=== PATIENT | female | born 1955 | race Caucasian/White ===

== ENCOUNTER 2017-12-17 13:53 | Inpatient (IN) | payer OTHER ==
[~2017-12-17] VITALS: Ht 157.5 cm; Wt 61.8 kg
[~2017-12-17 13:53] MED LIST: AMITRIPTYLINE H10 M1 PO; ATIVAN0.5 MG PO; ATIVAN1 MG PO; ATORVASTATIN CA80 MG PO; DUONEB 3 MG/3 ML3 ML INH/SOL; EXCEDRIN TENSIO1 TAB PO; FLUOXETINE HYDR20 M1 PO; GABAPENTIN300 MG PO; HYDRALAZINE HCL25 MG PO; HYDRALAZINE10 MG PO; LABETALOL HCL100 M1 PO; LABETALOL HYDR200 MG PO; NEURONTIN800 M1 PO; NICODERM C14 MG/24 H TD; NICOTINE T7 MG/24 H1 TD; NORVASC 10MG10 MG PO; NORVASC10 M1 PO; OXYCODONE HCL10 M2 PO; OXYCODONE HCL15 MG PO; OXYCONTIN20 MG PO; OXYCONTIN30 M1 PO; PREDNISONE10 MG PO; PRINIVIL 5MG5 MG PO; PRINIVIL10 MG PO; PROAIR HFA8.5 GM INH; QVAR0.08 MG/Ac INH; TRANDATE-NORMO200 MG PO; ZITHROMAX500 MG PO
[2017-12-17 14:42] LABS: ABSOLUTE BASOPHIL COUNT 0.1 /CUMM (0.0-0.2); ABSOLUTE EOSINOPHIL COUNT 0 /CUMM (0.0-0.7); ABSOLUTE MONOCYTE COUNT 0.7 /CUMM (0.10-0.60); BASOPHIL % 0.3 % (0.0-2.0); EOSINOPHIL % 0 % (0-5); GRANULOCYTE % 89.7 % (42.2-75.2); HEMATOCRIT 44.4 % (37-47); MEAN CORPUSCULAR HGB 29.4 PG (27.0-31.0); MEAN CORPUSCULAR HGB CONC 33.2 G/DL (33.0-37.0); MEAN CORPUSCULAR VOLUME 88.6 FL (81.0-99.0); MEAN PLATELET VOLUME 8.4 FL (7.4-10.4); PLATELET COUNT 183 /CUMM (130-400); RBC DISTRIBUTION WIDTH 13.3 % (11.5-14.5); RED BLOOD CELL CT 5.01 /CUMM (4.20-5.40); WHITE BLOOD CELL COUNT 17.8 /CUMM (4.8-10.8)
[2017-12-17] MEDS ORDERED: ALBUTEROL0.63 MG/1 INH/SOL (15:44)
[2017-12-17] MEDS ORDERED: DULOXETINE HCL30 MG PO (15:45)
[2017-12-17] MEDS ORDERED: ALPRAZOLAM0.25 M1 PO (15:45)
[2017-12-17] MEDS ORDERED: HYDRALAZINE HCL25 M1 PO (15:46)
[2017-12-17] MEDS ORDERED: TRAZODONE HCL50 M1 PO (15:47)
[2017-12-17] MEDS ORDERED: LYRICA100 M1 PO (15:47)
[2017-12-17] MEDS ORDERED: ANORO ELLIPTA1 EACH INH (15:48)
[2017-12-17] MEDS ORDERED: ATORVASTATIN CA80 M1 PO (15:49)
--- NOTE | 2017-12-17 15:51 | RADIOLOGY REPORT ---
EXAMINATION: XR PORTABLE CHEST CLINICAL INFORMATION: Confusion, hypoxia COMPARISON: 08/29/2015 TECHNIQUE: Portable FINDINGS: patients head obscures the upper lung zones medially. Given this there is no convincing evidence for an acute finding. No obvious failure or infiltrate. No effusion. Once again tortuous versus ectatic descending aorta. view of the chest was obtained. Impression: Negative acute portable chest. Limitation in the upper lung zones
--- NOTE | 2017-12-17 15:54 | ED AMS/SEIZURE/WEAK/DIZZY ---
History of Present Illness General Chief Complaint: General Adult Stated Complaint: CONFUSED PER ; HIGH BP PER PT Source: patient, family, old records Exam Limitations: confusion Vital Signs & Intake/Output Vital Signs & Intake/Output Vital Signs Date Time Temp Pulse Resp B/P B/P Pulse O2 O2 Flow FiO2 Mean Ox Delivery Rate 12/17 1859 97.4 93 20 126/78 92 Nasal 3.5L Cannula 12/17 1626 99.2 102 22 141/90 93 Nasal 3.0L Cannula 12/17 1512 109 22 92 Nasal 4.0L Cannula 12/17 1450 85 Nasal Cannula 12/17 1440 108 22 144/95 90 Nasal 3.0L Cannula 12/17 1401 99.9 128 22 154/102 89 Room Air Allergies Coded Allergies: codeine (ITCHING, HIVES 12/16/15) Reconcile Medications Albuterol Sulfate (Proair Hfa) 90 MCG HFA.AER.AD 2 PUF INH Q4-6 PRN PRN SHORTNESS OF BREATH (Reported) Albuterol Sulfate 0.63 MG/3 ML VIAL.NEB 1 Vial INH/RIA 4 TIMES/DAY PRN SHORTNESS OF BREATH (Reported) Alprazolam 0.25 MG TABLET 1 TAB PO TIDPRN PRN ANXIETY (Reported) Amlodipine Besylate (Norvasc) 10 MG TABLET 1 TAB PO DAILY HEART (Reported) Atorvastatin Calcium 80 MG TABLET 1 TAB PO 1700 CHOLESTEROL (Reported) Duloxetine HCl 30 MG CAPSULE.DR 1 CAP PO DAILY DEPRESSION (Reported) Hydralazine HCl 25 MG TABLET 1 TAB PO BID HEART (Reported) Labetalol HCl 100 MG TABLET 1 TAB PO BID HEART (Reported) Oxycodone HCl 10 MG TABLET 1 TAB PO TIDPRN PRN PAIN (Reported) Oxycodone HCl (Oxycontin) 30 MG TAB.ER.12H 1 TAB PO TID PAIN (Reported) Pregabalin (Lyrica) 100 MG CAPSULE 1 CAP PO TID PAIN (Reported) Trazodone HCl 50 MG TABLET 1.5 TAB PO QPM SLEEP (Reported) Umeclidinium Brm/Vilanterol Tr (Anoro Ellipta 62.5-25 Mcg INH) 62.5 MCG-25 MCG/ ACTUATION BLST.W.DEV 1 PUFF INH DAILY SHORTNESS OF BREATH (Reported) Triage Note: PT TO TRIAGE WITH HER WHO STATES THAT PT HAS INCREASED CONFUSION OVER THE PAST 2 DAYS, PT UNABLE TO KEEP HER EYES OPEN AT TRIAGE, O2 SAT 89 % ON RA, PT NOT ANSWERING QUESTIONS FOR THIS NURSE, PT IS IN PAIN MANAGEMENT BUT STATES THAT HE HAS THE MEDS UNDER LOCK AND COOLEY, STATES THAT PT MINIMAL APPETITE, WONT SIT STILL, HE WAS AT WORK AND HE CALLED HOME AND SHE PICKED UP BUT 10 SECONDS LATER SHE DROPPED PHONE ON FLOOR, HE LEFT WORK AND FOUND PT ON THE TOILET , NOT ANSWERING QUESTIONS. SPOUSE STATES THAT PT IS HOME BY HERSELF DURING THE DAY SO HE DOES NOT KNOW IF SHE FELL , STATES THAT THIS AM BEFORE GOING TO WORK , PT WAS SITTING IN CHAIR WITH PANTS AND UNDERWEAR DOWN TO HER KNEES, STATES THAT SHE HAD URINATED IN THE CHAIR Triage Nurses Notes Reviewed? yes Onset: Gradual Duration: week(s): Timing: recent history Injury Environment: home Severity: moderate HPI: 62YO female with hx of COPD, chronic back pain, HTN presents to ED in care of for AMS. reports the patient has been acting more confused over the past week. states that today the patient's symptoms have been the worst. Patient is on opiate pain medication chronically for her back pain, keeps this medication in a lock box been no recent increase in her medication dosage. states that today prior to leaving for work the patient had urinary incontinence also sitting in chair in the living room with her pants down. called the patient while he was at work and she answered the phone however dropped the phone after a few seconds and did not respond. went home to find her not responding, he was not able to wake her up and brought her here. HPI is limited due to patient's altered mental status, she is arousable however pulse asleep during questioning. Patient is denying chest pain. No fevers, vomiting, fall, dyspnea, cough. states that the patient's baseline oxygen saturation is around 89%, she has never been on home oxygen. (Kristie AUSTIN,Yahaira Worrell) Past History Travel History Traveled to [place] past 21 day No Medical History Any Pertinent Medical History? see below for history Neurological: NONE EENT: NONE Cardiovascular: hypertension Respiratory: COPD Gastrointestinal: NONE Hepatic: NONE Renal: NONE Musculoskeletal: chronic back pain, PULLED DISK Psychiatric: anxiety, chronic pain disorder, PAIN MANAGEMENT Endocrine: NONE Blood Disorders: NONE Cancer(s): NONE MEDICAL LIAISON/Reproductive: NONE Other Medical Hx: (1) HTN (2) Chronic back pain (3) CKD-III History of MRSA: No History of VRE: No History of CDIFF: No Surgical History Surgical History: , multiple back surgeries Psychosocial History Who do you live with Spouse Services at Home None What is your primary language Japanese Tobacco Use: Never used ETOH Use: denies use Illicit Drug Use: denies illicit drug use Family History Family History, If Any: FATHER, , Age 50-60; Cause: Myocardial infarct. MOTHER (breast cancer). . Hx Contributory? No (Yahaira Jaeger) Review of Systems Review of Systems Constitutional: Reports: see HPI. EENTM: Reports: no symptoms. Respiratory: Reports: no symptoms. Cardiovascular: Reports: no symptoms. GI: Reports: no symptoms. Genitourinary: Reports: see HPI. Musculoskeletal: Reports: no symptoms. Skin: Reports: no symptoms. Neurological/Psychological: Reports: see HPI. Hematologic/Endocrine: Reports: no symptoms. Immunologic/Allergic: Reports: no symptoms. All Other Systems: Reviewed and Negative (Yahaira Jaeger) Physical Exam Physical Exam General Appearance: no apparent distress, lethargic Head: atraumatic, normal appearance Eyes: Bilateral: normal appearance, PERRL, EOMI. Ears, Nose, Throat: hearing grossly normal Neck: normal inspection, supple, full range of motion Respiratory: normal breath sounds, no respiratory distress, lungs clear Cardiovascular: normal peripheral pulses, tachycardia Peripheral Pulses: 2+ radial (R), 2+ radial (L) Gastrointestinal: normal bowel sounds, soft, non-tender, no organomegaly Back: normal inspection, normal range of motion Extremities: normal range of motion Neurologic/Psych: awake, oriented to person and place, neurologic exam is limited d/t patient's confusion/lethargy, patient falls asleep during questioning however is arousable Skin: intact, normal color, warm/dry Core Measures ACS in differential dx? Yes CVA/TIA Diagnosis No Sepsis Present: No Sepsis Focused Exam Completed? No (Yahaira Jaeger) Progress Differential Diagnosis: arrythmia, alcohol intoxication, anemia, benign positional vertigo, CVA/stroke, dehydration, drug intoxication, encephalitis, electrolyte imbalance, hypoglycemia, hypoxia, intracranial Hem., intracranial mass/tumor, pneumonia, sepsis, seizure disorder, UTI/pyelo Plan of Care: Orders Procedure Date/time Status Heart Healthy Diet 12/18 B Active CBC WITHOUT DIFFERENTIAL 12/18 06 Active BASIC ELECTROLYTES PLUS BUN&CR 12/18 0600 Active LACTIC ACID 12/17 UNK Complete US-RENAL/KIDNEY 12/17 1842 Active PT Evaluate & Treat 12/17 1741 Active Pathway - chart 12/17 1741 Active House Staff 12/17 1741 Active ED Holding Orders 12/17 1738 Active Admit to inpatient 12/17 1738 Active Vital Signs 12/17 1738 Active Code Status 12/17 1738 Active Pathway - chart 12/17 1732 Active LACTIC ACID 12/17 1717 Complete Patient Data 12/17 1710 Active LUNG SCAN (V/Q) 12/17 1657 Active Add-on Test (ER Only) 12/17 1639 Active Intake & Output 12/17 1511 Active CULTURE,URINE 12/17 1505 Active ARTERIAL BLOOD GAS (GEN) 12/17 1430 Complete BLOOD CULTURE 12/17 1418 Active D-DIMER 12/17 1418 Complete URINE DRUG SCREEN FOR ER ONLY 12/17 1417 Complete URINALYSIS 12/17 1417 Complete ETHANOL 12/17 1417 Complete COMPREHENSIVE METABOLIC PANEL 12/17 1417 Complete CBC WITHOUT DIFFERENTIAL 12/17 1417 Complete EKG 12/17 1417 Active VTE Mechanical Prophylaxis 12/17 UNK Active [place] Coma Scale 12/17 UNK Active Current Medications Sig/Manoj Start time Last Medication Dose Stop Time Status Admin Atorvastatin Calcium 80 MG 1700 12/18 1700 AC (Lipitor) Amlodipine Besylate 10 MG DAILY 12/18 1000 AC (Norvasc) Ceftriaxone Sodium 1,000 MG DAILY 12/18 1000 AC (Rocephin) Duloxetine HCl 30 MG DAILY 12/18 1000 AC (Cymbalta) Heparin Sodium 5,000 UNIT Q8 12/18 0600 UNVr (Porcine) Hydralazine HCl 25 MG BID 12/17 2200 AC (Apresoline) Labetalol HCl 100 MG BID 12/17 2200 AC (Trandate) Pregabalin 100 MG TID 12/17 2200 AC (Lyrica) Acetaminophen 650 MG Q6P PRN 12/17 1745 AC (Tylenol) Sodium Chloride 1,000 ML .Q10H 12/17 1745 AC 12/17 (Normal Saline 0.9%) 1919 Laboratory Tests 12/17/17 1806: Lactic Acid 0.6 L 12/17/17 1600: D-Dimer High Sensitivty 548 H 12/17/17 1505: Urine Opiates Screen 1073.00, Methadone Screen 42, Barbiturate Screen < 60, Ur Phencyclidine Scrn < 6.00, Amphetamines Screen < 100, U Benzodiazepines Scrn > 800 H, Urine Cocaine Screen < 50, Urine Cannabis Screen < 5.00, Urine Color YEL , Urine Clarity HAZY H, Urine pH 6.5, Ur Specific [place] 1.020, Urine Protein >=300 H, Urine Ketones NEG, Urine Nitrite POS H, Urine Bilirubin NEG, Urine Urobilinogen 0.2, Ur Leukocyte Esterase MOD H, Ur Microscopic SEDIMENT EXAMINED , Urine RBC 25-50 H, Urine WBC 50-75 H, Urine Bacteria MANY H, Urine Hemoglobin LARGE H, Urine Glucose NEG 12/17/17 1444: Lactic Acid 1.2 12/17/17 1440: pH 7.39, pCO2 41, pO2 73 L, HCO3 24, ABG O2 Sat (Measured) 91.0 L, P-50 (Temp Corrected) N, Carboxyhemoglobin 2.6, O2 Concentration % 2L, Temperature 99.9, O2 Delivery Method N/C, Phlebotomy Draw Site RIGHT RADIAL 12/17/17 1430: Anion Gap 15, Estimated GFR 30 L, BUN/Creatinine Ratio 15.9, Glucose 127 H, Calcium 9.6, Total Bilirubin 0.9, AST 22, ALT 41, Alkaline Phosphatase 111, Total Protein 6.9, Albumin 4.4, Globulin 2.5, Albumin/Globulin Ratio 1.8, CBC w Diff MAN DIFF ORDERED, RBC 5.01, MCV 88.6, MCH 29.4, MCHC 33.2, RDW 13.3, MPV 8.4, Gran % 89.7 H, Lymphocytes % 5.9 L, Monocytes % 4.1, Eosinophils % 0, Basophils % 0.3, Absolute Granulocytes 16.0 H, Segmented Neutrophils 85 H, Band Neutrophils 2, Absolute Lymphocytes 1.0 L, Lymphocytes 8 L, Monocytes 4, Absolute Monocytes 0.7 H, Eosinophils 1, Absolute Eosinophils 0, Absolute Basophils 0.1, Platelet Estimate ADEQUATE, Normocytic RBCs VERIFIED, Normochromic RBCs VERIFIED, Serum Alcohol < 10.0 Microbiology 12/17 1600 BLOOD: Blood Culture - RECD 12/17 1505 URINE ROUT: Urine Culture - RECD 12/17 1430 BLOOD: Blood Culture - RECD Patient's urine shows evidence for a UTI. Patient's kidney function is stable compared to prior labs. Patient with leukocytosis of 17,000. D-dimer is elevated, patient is not a candidate for a chest CTA at this time given her renal function however will obtain v/q scan to further rule out pulmonary embolism. Patient with mild tachycardia, temp 99.9F. she was started on antibiotics and fluids for UTI. Given patient's altered mental status in setting of UTI this patient requires hospital admission for IV antibiotics, possible nephrology consults, repeat labs, possible IV fluids. Patient with hypoxia however per this is her baseline. Chest x-ray was a limited study however no evidence for acute pneumonia. Discussed this patient with hospitalist, Dr. Mohan, regarding her admission. Diagnostic Imaging: Viewed by Me: Radiology Read. Discussed w/RAD: Radiology Read. Radiology Impression: PATIENT: MARIO ANGUIANO PRESENT AGE: 62 PATIENT ACCOUNT NO: [id number] : 53 LOCATION: [facility] [place] ORDERING PHYSICIAN: Yahaira AUSTIN SERVICE DATE: 12/17/17 EXAM TYPE: RAD - XRY-PORTABLE CHEST XRAY EXAMINATION: XR PORTABLE CHEST CLINICAL INFORMATION: Confusion, hypoxia COMPARISON: 08/29/2015 TECHNIQUE: Portable FINDINGS: patients head obscures the upper lung zones medially. Given this there is no convincing evidence for an acute finding. No obvious failure or infiltrate. No effusion. Once again tortuous versus ectatic descending aorta. view of the chest was obtained. Impression: Negative acute portable chest. Limitation in the upper lung zones DICTATED BY: Leon Lai MD DATE/TIME DICTATED:12/17/171546 HOOK TENDER:FELICE DATE/TIME TRANSCRIBED:12/17/171546 CONFIDENTIAL, DO NOT COPY WITHOUT APPROPRIATE AUTHORIZATION. <Electronically signed in Other Vendor System> SIGNED BY: Leon Lai MD 12/17/17 8501 Initial ED EKG: sinus tachycardia @113bpm, nonspecific ST changes Prior EKG: unchanged (09/12/15) (Kristie AUSTIN,Yahaira Worrell) Departure Departure Disposition: STILL A PATIENT Condition: Stable Referrals: Mike Mcarthur MD (PCP/Family) Departure Forms: Customer Survey General Discharge Information Admission Note Spoke With: Janet Lainez MD Documentation of Exam: Documentation of any treatments & extenuating circumstances including Concerns Regarding Discharge (functional status, medication knowledge or non-compliance, living conditions, etc.) that warrant an admission rather than observation: [ Altered mental status in the setting of acute UTI requiring IV antibiotics, possible neurology consult, repeat labs, v/q scan tomorrow given elevated d- dimer, premature discharge is medically unsafe, it is unlikely that this patient will return to her baseline and under 48 hours.] (Kristie AUSTIN,Yahaira Worrell) Departure Clinical Impression Primary Impression: UTI (urinary tract infection) Qualifiers: Urinary tract infection type: acute cystitis Hematuria presence: without hematuria Qualified Code: N30.00 - Acute cystitis without hematuria Secondary Impressions: Altered mental status PA/[employer] Co-Sign Statement Statement: ED Attending supervision documentation- [x] I saw and evaluated the patient. I have also reviewed all the pertinent lab results and diagnostic results. I agree with the findings and the plan of care as documented in the PA's/[employer]'s documentation. [] I have reviewed the ED Record and agree with the PA's/[employer]'s documentation. [] Additions or exceptions (if any) to the PAs/[employer]'s note and plan are summarized below: [] I saw personally examined the patient and I agree with the PAs evaluation. The patient was in no acute distress on my exam. (Leon Clay DO)
--- NOTE | 2017-12-17 17:12 | History & Physical ---
Babak Aldana MD 12/17/17 7331: General Information and HPI MD Statement: I have seen and personally examined MARIO ANGUIANO and documented this H&P. The patient is a 62 year old F who presented with a patient stated chief complaint of [altered mental status, fever]. Source of Information: patient, family Exam Limitations: not alert/orientated History of Present Illness: Patient is a 62-year-old female with a PMH significant for COPD, HTN, chronic back pain status post multiple surgeries, neuropathy, who presented to the [facility] ED with altered mental status. Patient is very lethargic and much of the history was taken from the patient's at bedside. He reported that over the past 2-3 days patient had been very lethargic, complained of being warm, which is unusual compared to her baseline when she is almost always cold. The and the patient sleep separately and when the came down to see the patient in the morning she had urinated on the chair that she sleeps on, the urine was malodorous. Later in day patient was found asleep but arousable on the toilet. At baseline the patient is able to ambulate with a cane or using furniture to balance herself however over the last 2 days the patient has been too weak/lethargic to ambulate very far. The patient did not at any time complained about chest pain, shortness of breath, nausea, vomiting. Patient's also reports that at baseline, when the patient sleeps she has jerking motions. Allergies/Medications Allergies: Coded Allergies: codeine (ITCHING, HIVES 12/16/15) Home Med list Albuterol Sulfate (Proair Hfa) 90 MCG HFA.AER.AD 2 PUF INH Q4-6 PRN PRN SHORTNESS OF BREATH (Reported) Albuterol Sulfate 0.63 MG/3 ML VIAL.NEB 1 Vial INH/RIA 4 TIMES/DAY PRN SHORTNESS OF BREATH (Reported) Alprazolam 0.25 MG TABLET 1 TAB PO TIDPRN PRN ANXIETY (Reported) Amlodipine Besylate (Norvasc) 10 MG TABLET 1 TAB PO DAILY HEART (Reported) Atorvastatin Calcium 80 MG TABLET 1 TAB PO 1700 CHOLESTEROL (Reported) Duloxetine HCl 30 MG CAPSULE.DR 1 CAP PO DAILY DEPRESSION (Reported) Hydralazine HCl 25 MG TABLET 1 TAB PO BID HEART (Reported) Labetalol HCl 100 MG TABLET 1 TAB PO BID HEART (Reported) Oxycodone HCl 10 MG TABLET 1 TAB PO TIDPRN PRN PAIN (Reported) Oxycodone HCl (Oxycontin) 30 MG TAB.ER.12H 1 TAB PO TID PAIN (Reported) Pregabalin (Lyrica) 100 MG CAPSULE 1 CAP PO TID PAIN (Reported) Trazodone HCl 50 MG TABLET 1.5 TAB PO QPM SLEEP (Reported) Umeclidinium Brm/Vilanterol Tr (Anoro Ellipta 62.5-25 Mcg INH) 62.5 MCG-25 MCG/ ACTUATION BLST.W.DEV 1 PUFF INH DAILY SHORTNESS OF BREATH (Reported) Past History Travel History Traveled to [place] past 21 day No Medical History Neurological: NONE EENT: NONE Cardiovascular: hypertension Respiratory: COPD Gastrointestinal: NONE Hepatic: NONE Renal: NONE Musculoskeletal: chronic back pain, PULLED DISK Psychiatric: anxiety, chronic pain disorder, PAIN MANAGEMENT Endocrine: NONE Blood Disorders: NONE Cancer(s): NONE PIANO TECHNICIAN/Reproductive: NONE Other Medical Hx: (1) HTN (2) Chronic back pain (3) CKD-III History of MRSA: No History of VRE: No History of CDIFF: No Surgical History Surgical History: , multiple back surgeries Past Family/Social History Family History Relations & Conditions if any FATHER, , Age 50-60; Cause: Myocardial infarct. MOTHER (breast cancer). . Psychosocial History Who Do You Live With? spouse Services at Home: None Primary Language: Albanian Smoking Status: Current Everyday Smoker (100 pack year history) ETOH Use: denies use Illicit Drug Use: denies illicit drug use Functional Ability ADLs Independent: dressing, eating, toileting, bathing. Ambulation: cane IADLs Independent: shopping, housework, finances, food prep, telephone, transportation , medication admin. Review of Systems Review of Systems Constitutional: Reports: fever. Denies: chills. Cardiovascular: Reports: no symptoms. Respiratory: Reports: no symptoms. GI: Reports: no symptoms. Genitourinary: Reports: see HPI (possible urinary incontinence). Musculoskeletal: Reports: joint pain (chronic). Skin: Reports: no symptoms. Neurological/Psychological: Reports: no symptoms. Hematologic/Endocrine: Reports: no symptoms. Exam & Diagnostic Data Last 24 Hrs of Vital Signs/I&O Vital Signs Date Time Temp Pulse Resp B/P B/P Pulse O2 O2 Flow FiO2 Mean Ox Delivery Rate 12/174 101.3 110 22 160/92 92 Nasal Cannula 12/17 1859 97.4 93 20 126/78 92 Nasal 3.5L Cannula 12/17 1626 99.2 102 22 141/90 93 Nasal 3.0L Cannula 12/17 1512 109 22 92 Nasal 4.0L Cannula 12/17 1450 85 Nasal Cannula 12/17 1440 108 22 144/95 90 Nasal 3.0L Cannula 12/17 1401 99.9 128 22 154/102 89 Room Air Intake & Output 12/17 1600 12/17 0800 12/17 0000 Intake Total Output Total 100 Balance -100 Output, Urine 100 Patient 137 lb Weight Physical Exam General Appearance No Acute Distress, lethargic, confused, difficult to examine due to lethargy HEENT Atraumatic, Mucous Membr. moist/pink Neck Supple, No JVD Cardiovascular Normal S1, Normal S2, tachycardic Lungs diminished breath sounds Abdomen Normal Bowel Sounds, Soft, No Tenderness, CVA tenderness however patient has chronic back pain Neurological Normal Tone, Sensation Intact Extremities knees tender to palpation bilaterally, old ecchymosis on the L posterior shoulder, abrasion on the L knee Sepsis Peripheral Pulse Location: Radial Sepsis Peripheral Pulse Exam: Normal Sepsis Cap Refill Exam: <2 Sec Last 24 Hrs of Labs/Jerome: Laboratory Tests 12/17/17 1806: Lactic Acid 0.6 L 12/17/17 1600: D-Dimer High Sensitivty 548 H 12/17/17 1505: Urine Opiates Screen 1073.00, Methadone Screen 42, Barbiturate Screen < 60, Ur Phencyclidine Scrn < 6.00, Amphetamines Screen < 100, U Benzodiazepines Scrn > 800 H, Urine Cocaine Screen < 50, Urine Cannabis Screen < 5.00, Urine Color YEL , Urine Clarity HAZY H, Urine pH 6.5, Ur Specific [place] 1.020, Urine Protein >=300 H, Urine Ketones NEG, Urine Nitrite POS H, Urine Bilirubin NEG, Urine Urobilinogen 0.2, Ur Leukocyte Esterase MOD H, Ur Microscopic SEDIMENT EXAMINED , Urine RBC 25-50 H, Urine WBC 50-75 H, Urine Bacteria MANY H, Urine Hemoglobin LARGE H, Urine Glucose NEG 03/22/18 1444: Lactic Acid 1.2 12/17/17 1440: pH 7.39, pCO2 41, pO2 73 L, HCO3 24, ABG O2 Sat (Measured) 91.0 L, P-50 (Temp Corrected) N, Carboxyhemoglobin 2.6, O2 Concentration % 2L, Temperature 99.9, O2 Delivery Method N/C, Phlebotomy Draw Site RIGHT RADIAL 12/17/17 1430: Anion Gap 15, Estimated GFR 30 L, BUN/Creatinine Ratio 15.9, Glucose 127 H, Calcium 9.6, Total Bilirubin 0.9, AST 22, ALT 41, Alkaline Phosphatase 111, Total Protein 6.9, Albumin 4.4, Globulin 2.5, Albumin/Globulin Ratio 1.8, CBC w Diff MAN DIFF ORDERED, RBC 5.01, MCV 88.6, MCH 29.4, MCHC 33.2, RDW 13.3, MPV 8.4, Gran % 89.7 H, Lymphocytes % 5.9 L, Monocytes % 4.1, Eosinophils % 0, Basophils % 0.3, Absolute Granulocytes 16.0 H, Segmented Neutrophils 85 H, Band Neutrophils 2, Absolute Lymphocytes 1.0 L, Lymphocytes 8 L, Monocytes 4, Absolute Monocytes 0.7 H, Eosinophils 1, Absolute Eosinophils 0, Absolute Basophils 0.1, Platelet Estimate ADEQUATE, Normocytic RBCs VERIFIED, Normochromic RBCs VERIFIED, Serum Alcohol < 10.0 Microbiology 12/17 1600 BLOOD: Blood Culture - RECD 12/17 1505 URINE ROUT: Urine Culture - RECD 12/17 1430 BLOOD: Blood Culture - RECD Diagnostic Data EKG Results sinus tachycardia, HR 113, significant motion artifact CXR Results no acute pathology Assessment/Plan Assessment: Patient is a 62-year-old female with a PMH significant for COPD, HTN, chronic back pain status post multiple surgeries, neuropathy, who presented to the [facility] ED with altered mental status. The patient had an episode of urinary incontinence that was malodorous. She is lethargic and confused, below her cognitive baseline. Patient's labs are significant for leukocytosis, with UA indicative of UTI On presentation patient was hypoxic and tachycardic with low-grade elevated temperature 99.9. Problem list #AMS, possibly secondary to infection although patient is on chronic opioid and benzodiazepine medications for back pain, positive opiates and benzos screen on detox #UTI, possible pyelonephritis #Acute hypoxic respiratory failure with history of COPD #Chronic medical problems including chronic back pain, HTN, COPD Plan -Admit to the general medicine floor -IV ceftriaxone -Renal ultrasound -Serial neuro checks -Follow-up blood cultures and urine cultures -Continue home medications, hold sedative medications -TRC/nebs Diet: Heart healthy DVT prophylaxis: SC heparin, ALPS CODE STATUS: Full code As Ranked By This Provider Problem List: 1. Altered mental status 2. UTI (urinary tract infection) Qualifiers Urinary tract infection type: acute cystitis Hematuria presence: without hematuria Qualified Code: N30.00 - Acute cystitis without hematuria Core Measures/Misc (06/14) Acute Coronary Syndrome ACS Diagnosis: No Congestive Heart Failure Congestive Heart Failure Diagnosis No Cerebrovascular Accident CVA/TIA Diagnosis: No VTE (View Protocol) VTE Risk Factors Age>40 No Mechanical VTE Prophylaxis d/t N/A MechProphylax Ordered No VTE Pharm Prophylaxis d/t NA PharmProphylax ordered Sepsis (View protocol) Sepsis Present: No Janet Lainez MD 12/17/17 1746: Attending MD Review Statement Attending Statement Attending MD Statement: examined this patient, discuss w/resident/PA/FOUNDRY METALLURGIST, agreed w/resident/PA/FOUNDRY METALLURGIST, discussed with family, reviewed EMR data (avail), discussed with nursing, reviewed images, amended to note Attending Assessment/Plan: 62-year-old female with past medical history significant for chronic diastolic dysfunction, COPD, chronic back pain, hypertension who was brought in by secondary to acute confusion. History was limited as patient was still confused and could not answer my questions. No family member was in the room. Apparently patient has been found confused over the last 2 days. She is on chronic pain management with oxycodone and OxyContin. gives her medications to her. This am he gave her first dose of Oxycodone and second dose was due at 2 p.m. When he came to house he found that pt already had taken her second dose of Oxy prior to the scheduled time. Pt also claims that she is having difficulty with urination since last one week. + lower abd pain, back pain. In the ER UA was found to be dirty. Pt was also found to be hypoxic. reported that her regular O2 sats are in 80s at [facility]. In the emergency room her d-dimer was slightly high. Vital Signs Date Time Temp Pulse Resp B/P B/P Pulse O2 O2 Flow FiO2 Mean Ox Delivery Rate 12/17 1626 99.2 102 22 141/90 93 Nasal 3.0L Cannula 12/17 1512 109 22 92 Nasal 4.0L Cannula 12/17 1450 85 Nasal Cannula 12/17 1440 108 22 144/95 90 Nasal 3.0L Cannula 12/17 1401 99.9 128 22 154/102 89 Room Air On exam; Obtunded but arousable. CV; s1,s2, rrr resp; clear abd; soft, tender in the lower abdomen and she does have right-sided CVA tenderness, bs+ ext; no edema Laboratory Tests 12/17 12/17 12/17 1600 1505 1444 Chemistry Lactic Acid (0.7 - 2.1 mmol/L) 1.2 Coagulation D-Dimer High Sensitivty (0 - 243 ng/ml) 548 H Toxicology Urine Opiates Screen (>2000 NG/ML) 1073.00 Methadone Screen (>300 NG/ML) 42 Barbiturate Screen (>200 NG/ML) < 60 Ur Phencyclidine Scrn (>25 NG/ML) < 6.00 Amphetamines Screen (>1000 NG/ML) < 100 U Benzodiazepines Scrn (>200 NG/ML) > 800 H Urine Cocaine Screen (>300 NG/ML) < 50 Urine Cannabis Screen (>50 NG/ML) < 5.00 Urines Urine Color (YEL,AMB,STR) YEL Urine Clarity (CLEAR) HAZY H Urine pH (5.0 - 8.0) 6.5 Ur Specific [place] (1.001 - 1.035) 1.020 Urine Protein (NEG,<30 MG/DL) >=300 H Urine Ketones (NEG) NEG Urine Nitrite (NEG) POS H Urine Bilirubin (NEG) NEG Urine Urobilinogen (0.1 - 1.0 EU/dl) 0.2 Ur Leukocyte Esterase (NEG) MOD H Ur Microscopic SEDIMENT EXAMINED Urine RBC (0 - 5 /HPF) 25-50 H Urine WBC (0 - 2 /HPF) 50-75 H Urine Bacteria (NEG/NONE) MANY H Urine Hemoglobin (NEG) LARGE H Urine Glucose (N MG/DL) NEG 12/17 12/17 1440 1430 Blood Gas pH (7.35 - 7.45 PH) 7.39 pCO2 (35 - 45 TORR) 41 pO2 (80 - 100 TORR) 73 L HCO3 (21 - 28 MEQ/L) 24 ABG O2 Sat (Measured) (>96.0 %) 91.0 L P-50 (Temp Corrected) N Carboxyhemoglobin (1.5 - 5.0 %) 2.6 O2 Concentration % 2L Temperature (97.0 - 100.0 FARH) 99.9 O2 Delivery Method N/C Chemistry Sodium (137 - 145 mmol/L) 146 H Potassium (3.5 - 5.1 mmol/L) 4.7 Chloride (98 - 107 mmol/L) 105 Carbon Dioxide (22 - 30 mmol/L) 26 Anion Gap (5 - 16) 15 BUN (7 - 17 mg/dL) 27 H Creatinine (0.5 - 1.0 mg/dL) 1.7 H Estimated GFR (>60 ml/min) 30 L BUN/Creatinine Ratio (7 - 25 %) 15.9 Glucose (65 - 99 mg/dL) 127 H Calcium (8.4 - 10.2 mg/dL) 9.6 Total Bilirubin (0.2 - 1.3 mg/dL) 0.9 AST (14 - 36 U/L) 22 ALT (9 - 52 U/L) 41 Alkaline Phosphatase (<127 U/L) 111 Total Protein (6.3 - 8.2 g/dL) 6.9 Albumin (3.5 - 5.0 g/dL) 4.4 Globulin (1.9 - 4.2 gm/dL) 2.5 Albumin/Globulin Ratio (1.1 - 2.2 %) 1.8 Hematology CBC w Diff MAN DIFF ORDERED WBC (4.8 - 10.8 /CUMM) 17.8 H RBC (4.20 - 5.40 /CUMM) 5.01 Hgb (12.0 - 16.0 G/DL) 14.7 Hct (37 - 47 %) 44.4 MCV (81.0 - 99.0 FL) 88.6 MCH (27.0 - 31.0 PG) 29.4 MCHC (33.0 - 37.0 G/DL) 33.2 RDW (11.5 - 14.5 %) 13.3 Plt Count (130 - 400 /CUMM) 183 MPV (7.4 - 10.4 FL) 8.4 Gran % (42.2 - 75.2 %) 89.7 H Lymphocytes % (20.5 - 51.1 %) 5.9 L Monocytes % (1.7 - 9.3 %) 4.1 Eosinophils % (0 - 5 %) 0 Basophils % (0.0 - 2.0 %) 0.3 Absolute Granulocytes (1.4 - 6.5 /CUMM) 16.0 H Segmented Neutrophils (42.2 - 75.2 %) 85 H Band Neutrophils (0.0 - 5.0 %) 2 Absolute Lymphocytes (1.2 - 3.4 /CUMM) 1.0 L Lymphocytes (20.5 - 51.1 %) 8 L Monocytes (1.7 - 9.3 %) 4 Absolute Monocytes (0.10 - 0.60 /CUMM) 0.7 H Eosinophils (0 - 5.0 %) 1 Absolute Eosinophils (0.0 - 0.7 /CUMM) 0 Absolute Basophils (0.0 - 0.2 /CUMM) 0.1 Platelet Estimate (ADEQUATE) ADEQUATE Normocytic RBCs VERIFIED Normochromic RBCs VERIFIED Miscellaneous Phlebotomy Draw Site RIGHT RADIAL Toxicology Serum Alcohol (<10 MG/DL) < 10.0 On exam; Obtunded but arousable. CV; s1,s2, rrr resp; clear abd; soft, tender in the lower abdomen and she does have right-sided CVA tenderness, bs+ ext; no edema. CXR: Impression: Negative acute portable chest. Limitation in the upper lung zones EKG>> sinus tach. A/P; 62-year-old female with past medical history significant for chronic diastolic dysfunction, COPD, chronic back pain, hypertension admitted with altered mental state, likely secondary to metabolic encephalopathy from UTI. Patient does have leukocytosis with CVA tenderness so possibility of pyelonephritis is there. Patient has taken extra dose of her oxy as well. This could also be related to extra narcotic. Her U tox is positive for benzodiazepines as well as opiates. Patient will be admitted to medicine floor. We should obtain urine culture blood culture. Should obtain a renal ultrasound to look for Pyelo. Patient was given ceftriaxone in the emergency room which we can continue and follow-up on the cultures to adjust antibiotics accordingly. Please confirm the rest of her home medications. We need to confirm history from patient's to make sure that she is compliant with her pain regimen and there are no episodes of overdose. If there is any history of overdose, she might benefit from Narcan. DVT prophylaxis: Heparin subcutaneous. Need to confirm the CODE STATUS with patient's . Beverley Apodaca MD 12/17/171939: Resident Review Statement Resident Statement: examined this patient, discussed with automotive internet sales consultant, agreed with automotive internet sales consultant, amended to note Other Findings: 59F PMH HTN, COPD not on home O2 or chronic steroids, hypertensive urgency and difficult to control hypertension who was brought in by her with c/o 2 days of confusion and worsening mentation. Patient is confused and lethergic but arousable on voice command. She has an old bruise on her left shoulder and a scab skin tear on her rt mas, thinks she may have fallen at some point. Tenderness in lower back and lower extremity. Assessment 1. AMS likely 2/2 UTI/Sepsis r/o opiod overdose 2. Chronic back pain 3. HTN Plan -Admit to general medicine floor -Obtain Urine cultures and blood cultures x 2 -Continue IV ceftriaxone 1 gm daily -PO tylenol for pain/fever -Renal US to r/o pyelonephritis -Resume her impt home medications including her BP medications -Neurochecks Q4hrs; watch for worsening mentation with a low threshold for a CT head -Watch BP closely due to history of difficulty in controlling HTN -Hold all sedating medications till improvement in mentation -SC heparin for DVT ppx -Patient is FC
[2017-12-17 20:54] VITALS: BP 160/92
[2017-12-17 21:45] VITALS: BP 200/100
--- NOTE | 2017-12-17 21:46 | Event Note ---
Event Note Event Note: S: A rapid response was called at 9:46 PM as patient was found to be agitated and having temperature 105 F with heart rate 128 and blood pressure 200/100. B:62-year-old female with a PMH significant for COPD, HTN, chronic back pain status post multiple surgeries, neuropathy, who presented to the [facility] ED with altered mental status and fever. Patient is being treated for UTI and possible pyelonephritis with IV ceftriaxone. A/P: We went to see the patient and she was agitated. She pulled out her IV line. Patient was put in Alberto with restraints and IV line was maintained the patient was given IV Tylenol, coolent blankets and IV Solu-Medrol 125 mg once considering her history of COPD as her saturation was dropping and she was started on supplemental oxygen with Ventimask 4 L maintaining saturation 91%. Considering patient's high blood pressure and temperature it was decided to transfer the patient to ICU for close monitoring. Patient will receive IV antihypertensive medication in ICU. Family was informed about patient's condition and transferred to ICU. CT scan head stat was along with EKGs and troponins. Lactic acid with ICU bundle was ordered.
--- NOTE | 2017-12-17 22:28 | ULTRASOUND REPORT ---
EXAMINATION: US RETROPERITONEAL COMPLETE (RENAL) CLINICAL INFORMATION: 62-year-old female with UTI and flank tenderness. Presumptive diagnosis: Pyelonephritis. COMPARISON: Renal ultrasound on 06/25/2015. (End-stage right kidney. Normal left kidney). TECHNIQUE: Real-time imaging of the kidneys and bladder. FINDINGS: RIGHT KIDNEY: 7.8 x 2.9 x 3.9 cm (SAG x AP x TRV). Previously 7.4 x 1.8 x 2.9 cm. The kidney is shrunken and there is significant cortical atrophy. The appearance is that of an end stage kidney. LEFT KIDNEY: 10.5 x 5.9 x 5.8 cm (SAG x AP x TRV). Previously 10.9 x 5.1 cm. The kidney is normal in size, contour, and echogenicity. Renal cortical thickness is normal. No calculi. No hydronephrosis. A cortical cyst arises from the lower pole measuring 2.3 x 2.0 x 2.4 cm. Previously 1.6 x 1.7 x 1.7 cm. BLADDER: Partially filled. Only a left renal jet was observed during the exam. Prevoid bladder volume is 73 mL. IMPRESSION: End-stage right kidney. Normal left kidney with cyst.
[2017-12-17 22:45] LABS: ABSOLUTE BASOPHIL COUNT 0 /CUMM (0.0-0.2); ABSOLUTE EOSINOPHIL COUNT 0 /CUMM (0.0-0.7); ABSOLUTE GRANULOCYTE CT 3.3 /CUMM (1.4-6.5); ABSOLUTE LYMPH COUNT 0.5 /CUMM (1.2-3.4); ABSOLUTE MONOCYTE COUNT 0 /CUMM (0.10-0.60); EOSINOPHIL % 0.1 % (0-5)
[2017-12-17 22:49] LABS: BASOPHIL % 0 % (0.0-2.0); GRANULOCYTE % 86.4 % (42.2-75.2); MEAN CORPUSCULAR HGB 29.9 PG (27.0-31.0); MEAN CORPUSCULAR HGB CONC 33.6 G/DL (33.0-37.0); MEAN CORPUSCULAR VOLUME 88.9 FL (81.0-99.0); MEAN PLATELET VOLUME 8.3 FL (7.4-10.4); PLATELET COUNT 145 /CUMM (130-400); RBC DISTRIBUTION WIDTH 13.8 % (11.5-14.5); RED BLOOD CELL CT 4.34 /CUMM (4.20-5.40)
[2017-12-17 22:52] LABS: HEMATOCRIT 38.6 % (37-47); WHITE BLOOD CELL COUNT 3.8 /CUMM (4.8-10.8)
--- NOTE | 2017-12-17 23:34 | Acceptance Note - Resident/Int ---
See Addendum Subjective Background: 62 year old woman with multiple medical problems admitted for evaluation of altered mental status found to have sepsis secondary to a urinary tract infection. Review of Systems Constitutional: Reports: see HPI. Objective Last 24 Hrs of Vital Signs/I&O Vital Signs Date Time Temp Pulse Resp B/P B/P Pulse O2 O2 Flow FiO2 Mean Ox Delivery Rate 12/17 2229 104.1 12/17 2221 92 Nasal 4.5L Cannula 12/17 2199 105.1 12/17 2144 105.1 125 22 200/100 94 Nasal 6.0L Cannula 12/17 2144 93 Nasal 4.5L Cannula 12/18 2103 101.3 12/18 2103 110 160/92 12/17 210 110 160/92 12/174 101.3 110 22 160/92 92 Nasal Cannula 12/17 1859 97.4 93 20 126/78 92 Nasal 3.5L Cannula 12/17 1626 99.2 102 22 141/90 93 Nasal 3.0L Cannula 12/17 1512 109 22 92 Nasal 4.0L Cannula 12/17 1450 85 Nasal Cannula 12/17 1440 108 22 144/95 90 Nasal 3.0L Cannula 12/17 1401 99.9 128 22 154/102 89 Room Air Intake & Output 12/17 1600 12/17 0800 12/17 0000 Intake Total Output Total 100 Balance -100 Output, Urine 100 Patient 62.142 kg Weight Physical Exam General Appearance: Mild Distress Skin: No Rashes, No Breakdown, No Significant Lesion Skin Temp/Moisture Exam: Warm/Dry Sepsis Skin Exam (color): Normal for Ethnicity, Flushed HEENT: Atraumatic, PERRLA, EOMI, Mucous Membr. moist/pink Neck: Supple, No JVD Cardiovascular: Regular Rate, Normal S1, Normal S2 Lungs: Clear to Auscultation, Normal Air Movement Abdomen: Normal Bowel Sounds, Soft, No Tenderness, No Hepatospenomegaly, No Masses Neurological: Normal Tone, Cranial Nerves 3-12 NL Extremities: No Clubbing, No Cyanosis, No Edema, Normal Pulses, No Tenderness/ Swelling Vascular: Normal Pulses, Pulses Symmetrical Sepsis Peripheral Pulse Location: Dorsalis Pedis Sepsis Peripheral Pulse Exam: Normal Sepsis Cap Refill Exam: <2 Sec Current Medications: Current Medications Sig/Manoj Start time Last Medication Dose Route Stop Time Status Admin Acetaminophen 1,000 MG Q6P PRN 12/17 2215 AC IV Acetaminophen 1,000 MG ONCE ONE 12/17 2145 DC 12/17 IV 12/17 214 2200 Acetaminophen 650 MG Q6P PRN 12/17 1745 AC 12/17 PO 2104 Amlodipine Besylate 10 MG DAILY 12/18 1000 AC PO Atorvastatin Calcium 80 MG 1700 12/18 1700 AC PO Ceftriaxone Sodium 1,000 MG DAILY 12/18 1000 AC IV Ceftriaxone Sodium 0 .STK-MED ONE 12/17 1613 DC .ROUTE Ceftriaxone Sodium 1,000 MG ONCE ONE 12/17 1600 DC 12/17 IV 12/17 1601 1619 Duloxetine HCl 30 MG DAILY 12/18 1000 AC PO Enoxaparin Sodium 40 MG DAILY 12/17 1740 DC 12/17 SC 1821 Heparin Sodium 5,000 UNIT Q8 12/18 0600 AC (Porcine) SC Hydralazine HCl 25 MG BID 12/17 2200 AC 12/17 PO 210 Labetalol HCl 100 MG BID 12/17 2200 AC 12/17 PO 2103 Methylprednisolone 125 MG ONCE ONE 12/17 2199 DC 12/17 IV 12/17 2200 2239 Pregabalin 100 MG TID 12/17 220 AC PO Sodium Chloride 1,000 ML .Q10H 12/17 1745 AC 12/17 IV 1919 Sodium Chloride 1,000 ML BOLUS ONE 12/17 161 DC 12/17 IV 12/17 1814 1623 Last 24 Hrs of Lab/Jerome Results Last 24 Hrs of Labs/Mics: Laboratory Tests 12/17/172234: Anion Gap 12, Estimated GFR 27 L, Glucose 101 H, Lactic Acid 1.3, Calcium 8.5, Phosphorus 3.5, Magnesium 1.6, Total Bilirubin 0.9, AST 21, ALT 36, Troponin I < 0.01, Albumin 3.3 L, CBC w Diff MAN DIFF ORDERED, RBC 4.34, MCV 88.9, MCH 29.9, MCHC 33.6, RDW 13.8, MPV 8.3, Gran % 86.4 H, Lymphocytes % 12.4 L, Monocytes % 1.1 L, Eosinophils % 0.1, Basophils % 0, Absolute Granulocytes 3.3, Segmented Neutrophils 78 H, Band Neutrophils 8 H, Absolute Lymphocytes 0.5 L, Lymphocytes 11 L, Monocytes 2, Absolute Monocytes 0 L, Eosinophils 1, Absolute Eosinophils 0, Absolute Basophils 0, Platelet Estimate ADEQUATE, Normocytic RBCs VERIFIED, Normochromic RBCs VERIFIED 12/17/17 2214: Troponin I Cancelled, CBC w Diff Cancelled, WBC Cancelled, RBC Cancelled, Hgb Cancelled, Hct Cancelled, MCV Cancelled, MCH Cancelled, MCHC Cancelled, RDW Cancelled, Plt Count Cancelled, MPV Cancelled 12/17/17 1806: Lactic Acid 0.6 L 12/17/17 1600: D-Dimer High Sensitivty 548 H 12/17/17 1505: Urine Opiates Screen 1073.00, Methadone Screen 42, Barbiturate Screen < 60, Ur Phencyclidine Scrn < 6.00, Amphetamines Screen < 100, U Benzodiazepines Scrn > 800 H, Urine Cocaine Screen < 50, Urine Cannabis Screen < 5.00, Urine Color YEL , Urine Clarity HAZY H, Urine pH 6.5, Ur Specific Colstrip 1.020, Urine Protein >=300 H, Urine Ketones NEG, Urine Nitrite POS H, Urine Bilirubin NEG, Urine Urobilinogen 0.2, Ur Leukocyte Esterase MOD H, Ur Microscopic SEDIMENT EXAMINED , Urine RBC 25-50 H, Urine WBC 50-75 H, Urine Bacteria MANY H, Urine Hemoglobin LARGE H, Urine Glucose NEG 12/17/17 1444: Lactic Acid 1.2 12/17/17 1440: pH 7.39, pCO2 41, pO2 73 L, HCO3 24, ABG O2 Sat (Measured) 91.0 L, P-50 (Temp Corrected) N, Carboxyhemoglobin 2.6, O2 Concentration % 2L, Temperature 99.9, O2 Delivery Method N/C, Phlebotomy Draw Site RIGHT RADIAL 12/17/17 1430: Anion Gap 15, Estimated GFR 30 L, BUN/Creatinine Ratio 15.9, Glucose 127 H, Calcium 9.6, Total Bilirubin 0.9, AST 22, ALT 41, Alkaline Phosphatase 111, Total Protein 6.9, Albumin 4.4, Globulin 2.5, Albumin/Globulin Ratio 1.8, CBC w Diff MAN DIFF ORDERED, RBC 5.01, MCV 88.6, MCH 29.4, MCHC 33.2, RDW 13.3, MPV 8.4, Gran % 89.7 H, Lymphocytes % 5.9 L, Monocytes % 4.1, Eosinophils % 0, Basophils % 0.3, Absolute Granulocytes 16.0 H, Segmented Neutrophils 85 H, Band Neutrophils 2, Absolute Lymphocytes 1.0 L, Lymphocytes 8 L, Monocytes 4, Absolute Monocytes 0.7 H, Eosinophils 1, Absolute Eosinophils 0, Absolute Basophils 0.1, Platelet Estimate ADEQUATE, Normocytic RBCs VERIFIED, Normochromic RBCs VERIFIED, Serum Alcohol < 10.0 Microbiology 12/17 2348 UPPER RESP: Surveillance Culture - ORD 12/17 2348 GI: Surveillance Culture - ORD 12/17 2300 URINE ROUT: Urine Culture - RECD 12/17 2213 LOWER RESP: Respiratory Culture - ORD 12/17 2213 LOWER RESP: Gram Stain - ORD 12/17 1600 BLOOD: Blood Culture - RECD 12/17 1505 URINE ROUT: Urine Culture - RECD 12/17 1430 BLOOD: Blood Culture - RECD Assessment/Plan Assessment: 62 year old woman with multiple medical problems admitted for evaluation of altered mental status found to have sepsis secondary to a urinary tract infection. Rapid response was called around 9:45 PM for patient being agitated with elevated blood pressure and temperature of 105. Stat labs and EKG were obtained which were unremarkable. CT Head and Abdomen/Pelvis without contrast are ordered. Patients altered mental status may be due to toxic metabolic encephalopathy secondary to sepsis of urologic origin or opiate narcosis. Renal ultrasound did not suggest pyelonphritis. CT Head should be assessed when patient stable for intracranial process such and bleed and abdomen/pelvis to assess for pyelonephritis / colitis. Given her altered mental status and high fever encephalitis / meningitis should be consider and patient may require a lumber puncture; currenlty she has no meningismus. Problem List -Altered mental status, possible opiate narcosis -Fever 105 degrees -Sepsis -Acute Hypoxic Respiratory Failure -Urinary tract infection -Possible Pyelonephritis -History of COPD -Hypertension -Chronic back pain Plan -ICU admission from [facility] -Telemetry -Supplemental oxygen -TRC -Ins & Outs -Loera catheter -Cooling blankets -Bilateral upper extremity soft restraints -Monitor blood pressure -Hold sedatives -NS @ 100 mL/hr -Ceftriaxone 1 g IV Daily -Solumedrol 125 mg IV ONCE -Continue home meds: amlodipine, lipitor, cymbalta, hydralazine, labetalol, lyrica -Blood/Urine cultures -JAM: End-stage right kidney. Normal left kidney with cyst. -Obtain CT Head / abdomen / pelvis when able -Pain control with acetaminophen -NPO -DVT PPx with subcutaneous heparin -FULL CODE Problem List: 1. Altered mental status 2. UTI (urinary tract infection) Pain Ratin Pain Location: See assessment Pain Goal: Remain pain free Pain Plan: See assessment Tomorrow's Labs & Rationales: CBC, ICU bundle
[2017-12-18] VITALS: BP 126/78
--- NOTE | 2017-12-18 00:45 | CT SCAN REPORT ---
EXAMINATION: CT HEAD WITHOUT CONTRAST CLINICAL INFORMATION: Altered mental status. Fever. COMPARISON: CT head 07/04/2015 TECHNIQUE: Contiguous axial imaging was performed from the skull base to vertex without intravenous administration of contrast. DLP: 615.07 mGy-cm FINDINGS: There is no evidence of acute intracranial hemorrhage or territorial infarction. No abnormal mass effect or midline shift is seen. [place] to white matter differentiation is well preserved. No extra-axial fluid collections are identified. There is atrophy with prominence of the ventricles and the sulci and hypodensity of the periventricular white matter due to chronic small vessel ischemic disease. There is vascular calcifications of the internal carotid arteries bilaterally. The osseous structures and soft tissues are normal. The mastoid air cells and visualized portions of the paranasal sinuses are well aerated. IMPRESSION: No acute intracranial pathology.
--- NOTE | 2017-12-18 01:26 | CT SCAN REPORT ---
EXAMINATION: CT ABDOMEN AND PELVIS WITHOUT CONTRAST CLINICAL INFORMATION: Fever. UTI. Sepsis. Concern for pyelonephritis. COMPARISON: Renal ultrasound 06/25/2015 TECHNIQUE: Multidetector volumetric imaging was performed from the superior aspect of the liver through the pubic symphysis. Sagittal and coronal reformatted images were obtained on the technologist's workstation. DLP: 302.47 mGy-cm FINDINGS: There is streak artifact throughout the exam limiting study. LUNG BASES: There is dependent atelectasis at the left lung base. There is a small pericardial effusion measuring 0.6 cm in diameter adjacent to the anterior heart. LIVER, GALLBLADDER, AND BILIARY TREE: The liver is normal in size, shape, and attenuation. No focal hepatic lesion or biliary ductal dilatation is present. Gallbladder disease distended. No edema around the gallbladder. No calcified gallstone. There is no bile duct dilatation. PANCREAS: Unremarkable. SPLEEN: Unremarkable. ADRENAL GLANDS: Unremarkable. KIDNEYS AND URETERS: Clinical concern is for pyelonephritis. A postcontrast study would be more sensitive to assess enhancement patterns of the cortex of the kidney. There is no edema around either kidney. The right kidney is atrophic. Measures about 5.4 cm superior inferior. The left kidney measures 10.6 cm superior inferior. There is a nonobstructive stone in the lower pole of left kidney measuring 8 mm. This has a density measurement of 1202 Hounsfield units. The stone lies approximately 10.2 cm from the posterior lateral skin line. There is pedunculated 2.5 cm cortical cyst at the mid pole the left kidney. There are a few punctate and linear calcifications in the mike of the left kidney which may be vascular. There is no ureteral calculus. BLADDER: Loera catheter within the bladder. The bladder is empty. GASTROINTESTINAL TRACT: There is a large volume of stool in the rectum. Rectum is distended to a diameter 7.5 cm transverse at the level the hips. There is no edema however of the wall of the rectum sigmoid. No bowel wall thickening or edema throughout the large or small bowel. No bowel obstruction. There is a probe in the rectum. The appendix is normal. The small bowel loops are unremarkable. ABDOMINAL WALL: No significant hernia is appreciated. LYMPH NODES: Normal. VASCULAR: Atherosclerotic vascular wall calcifications of aorta and iliac vessels without aneurysm. PELVIC VISCERA: Unremarkable. OSSEOUS STRUCTURES: Status post left hip replacement. This causes streak artifact through the lower pelvis. There is degenerative spondylosis spine. Vacuum disc phenomenon L5-S1. Multilevel facet joint arthrosis at lower lumbar spine. IMPRESSION: 1. No edema around either kidney. No hydronephrosis of kidneys. The right kidney is atrophic. Left kidney has a nonobstructive 8 mm stone in the lower pole. 2. Fecal impaction in rectum without bowel wall thickening, no evidence of stercoral colitis.
[2017-12-18 04:49] LABS: ABSOLUTE BASOPHIL COUNT 0 /CUMM (0.0-0.2); ABSOLUTE EOSINOPHIL COUNT 0 /CUMM (0.0-0.7); ABSOLUTE LYMPH COUNT 0.7 /CUMM (1.2-3.4); ABSOLUTE MONOCYTE COUNT 0.8 /CUMM (0.10-0.60)
[2017-12-18 05:35] LABS: ABSOLUTE GRANULOCYTE CT 16.5 /CUMM (1.4-6.5); BASOPHIL % 0 % (0.0-2.0); EOSINOPHIL % 0 % (0-5); GRANULOCYTE % 91.4 % (42.2-75.2); HEMATOCRIT 37.8 % (37-47); MEAN CORPUSCULAR HGB 29.6 PG (27.0-31.0); MEAN CORPUSCULAR HGB CONC 32.8 G/DL (33.0-37.0); MEAN CORPUSCULAR VOLUME 90.1 FL (81.0-99.0); MEAN PLATELET VOLUME 8.9 FL (7.4-10.4); PLATELET COUNT 137 /CUMM (130-400); RBC DISTRIBUTION WIDTH 13.7 % (11.5-14.5); RED BLOOD CELL CT 4.19 /CUMM (4.20-5.40)
[2017-12-18 05:51] LABS: WHITE BLOOD CELL COUNT 18.1 /CUMM (4.8-10.8)
--- NOTE | 2017-12-18 07:33 | Cons- CRCU ---
Tony Sevilla MD 12/18/17 0732: General Information and HPI Consulting Request Date of Consult: 12/18/17 Requested By: Dr. Lacy Reason for Consult: Acute hypoxic respiratory failure and encephalopathy, sepsis of urological origin Source of Information: patient, family, old records History of Present Illness: Patient is a 62-year-old female with past medical history of COPD, hypertension, chronic back pain on opiates status post multiple back surgeries and neuropathy presenting this admission with altered mental status and fever. Patient's was at bedside this morning. Patient and her report that the patient since 12/16 has not been feeling well. Patient states that she has been having burning on urination. Reports that patient has been confused lately over the past 2 days. Reports the patient has been lethargic and had decreased appetite over the past 2 weeks. Patient states that she has been having cough. Patient reports shortness of breath. Patient denies any chest pain, dizziness/light headedness, lower extremity edema. Patient reports nausea and constipation. Denies vomiting, diarrhea, abdominal pain. Patient reports that she has been having fevers/chills. Patient was initially admitted to the general medicine floor for management of encephalopathy secondary to sepsis and possible opiate overdose with U tox positive for opiates and benzos. Patient was started on IV ceftriaxone. Patient had an ultrasound which showed end-stage right kidney and normal left kidney with cyst. Patient had a CT abdomen and pelvis which showed a left nonobstructive 8 mm stone in the lower pole of the left kidney and an atrophic right kidney. No evidence of pyelonephritis. Patient's urine culture and blood cultures were positive for gram-negative rods. Patient overnight was found to be febrile with a temperature of 105, rigors, hypoxic saturating at 94% on 6 L, drowsy. Patient was moved to the ICU for closer monitoring for acute hypoxic respiratory failure and encephalopathy secondary to sepsis/opiate use. Patient had head CT which was negative. Vitals: MAXIMUM TEMPERATURE 105 came down to 98.4 this morning, heart rate 92-102, sinus rhythm and sinus tach, blood pressure ranging from 91-130 over 60s to 80, saturating at 94-97% on 4L Labs: WBC count 18.1 on IV steroids, H&H 12.4 and 37.8, platelets 137 Sodium 137, potassium 3.9, chloride 110, BUN/creatinine 29/2.0, glucose 112, calcium 8.7, phosphorus 3.1, magnesium 1.9, LFTs within normal limits, albumin 3.1 Microbiology: Blood cultures from December 17 2 growing gram negative rods Urine cultures from December 22 growing gram-negative rods Allergies/Medications Allergies: Coded Allergies: codeine (ITCHING, HIVES 12/16/15) Home Med List: Albuterol Sulfate (Proair Hfa) 90 MCG HFA.AER.AD 2 PUF INH Q4-6 PRN PRN SHORTNESS OF BREATH (Reported) Albuterol Sulfate 0.63 MG/3 ML VIAL.NEB 1 Vial INH/RIA 4 TIMES/DAY PRN SHORTNESS OF BREATH (Reported) Alprazolam 0.25 MG TABLET 1 TAB PO TIDPRN PRN ANXIETY (Reported) Amlodipine Besylate (Norvasc) 10 MG TABLET 1 TAB PO DAILY HEART (Reported) Atorvastatin Calcium 80 MG TABLET 1 TAB PO 1700 CHOLESTEROL (Reported) Duloxetine HCl 30 MG CAPSULE.DR 1 CAP PO DAILY DEPRESSION (Reported) Hydralazine HCl 25 MG TABLET 1 TAB PO BID HEART (Reported) Labetalol HCl 100 MG TABLET 1 TAB PO BID HEART (Reported) Oxycodone HCl 10 MG TABLET 1 TAB PO TIDPRN PRN PAIN (Reported) Oxycodone HCl (Oxycontin) 30 MG TAB.ER.12H 1 TAB PO TID PAIN (Reported) Pregabalin (Lyrica) 100 MG CAPSULE 1 CAP PO TID PAIN (Reported) Trazodone HCl 50 MG TABLET 1.5 TAB PO QPM SLEEP (Reported) Umeclidinium Brm/Vilanterol Tr (Anoro Ellipta 62.5-25 Mcg INH) 62.5 MCG-25 MCG/ ACTUATION BLST.W.DEV 1 PUFF INH DAILY SHORTNESS OF BREATH (Reported) Review of Systems Review of Systems Constitutional: Reports: chills, fever, malaise, weakness. Cardiovascular: Reports: no symptoms. Respiratory: Reports: cough, short of breath. GI: Reports: constipation, nausea. Genitourinary: Reports: see HPI, frequency, pain. Musculoskeletal: Reports: back pain. Skin: Reports: no symptoms. Past History Travel History Traveled to [place] past 21 day No Medical History Neurological: NONE EENT: NONE Cardiovascular: hypertension Respiratory: COPD Gastrointestinal: NONE Hepatic: NONE Renal: NONE Musculoskeletal: chronic back pain, PULLED DISK Psychiatric: anxiety, chronic pain disorder, PAIN MANAGEMENT Endocrine: NONE Blood Disorders: NONE Cancer(s): NONE ELASTIC TAPE INSERTER/Reproductive: NONE Other Medical Hx: (1) HTN (2) Chronic back pain (3) CKD-III Surgical History Surgical History: , multiple back surgeries Family History Relations & Conditions If Any: FATHER, , Age 50-60; Cause: Myocardial infarct. MOTHER (breast cancer). . Psychosocial History Who Do You Live With? spouse Services at Home: None Primary Language: Armenian Smoking Status: Current Everyday Smoker (100 pack year history) ETOH Use: denies use Illicit Drug Use: denies illicit drug use Functional Ability ADLs Independent: dressing, eating, toileting, bathing. Ambulation: cane IADLs Independent: shopping, housework, finances, food prep, telephone, transportation , medication admin. Exam & Diagnostic Data Last 24 Hrs of Vital Signs/I&O Vital Signs Date Time Temp Pulse Resp B/P B/P Pulse O2 O2 Flow FiO2 Mean Ox Delivery Rate 12/18 0908 92 135/84 12/18 0908 92 135/84 12/18 0908 92 135/84 12/18 0906 Nasal 4.0L Cannula 12/18 0906 94 Nasal 4.0L Cannula 12/18 0400 94 Venti Mask 35% 12/18 0000 97 Venti Mask 40% 12/18 0000 101.6 102 19 126/78 97 Venti Mask 40% 12/17 2300 103.2 12/170 104.1 12/17 2221 92 Nasal 4.5L Cannula 12/170 105.1 12/17 2144 105.1 125 22 200/100 94 Nasal 6.0L Cannula 12/17 2144 93 Nasal 4.5L Cannula 12/18 2103 101.3 12/18 2103 110 160/92 12/17 2102 110 160/92 12/174 101.3 110 22 160/92 92 Nasal Cannula 12/17 1859 97.4 93 20 126/78 92 Nasal 3.5L Cannula 12/17 1626 99.2 102 22 141/90 93 Nasal 3.0L Cannula 12/17 1512 109 22 92 Nasal 4.0L Cannula 12/17 1450 85 Nasal Cannula 12/17 1440 108 22 144/95 90 Nasal 3.0L Cannula Intake & Output 12/18 1600 12/18 0800 12/18 0000 Intake Total 565 1340 Output Total 350 40 Balance 215 1300 Intake, IV 565 1300 Intake, Oral 0 40 Number 0 1 Bowel Movements Output, Urine 350 40 Patient 136 lb 138 lb Weight Weight Bed scale Bed scale Measurement Method Physical Exam General Appearance: well developed/nourished, no apparent distress, alert, awake , comfortable Head: atraumatic, normal appearance Eyes: Bilateral: PERRL, EOMI. Respiratory: normal breath sounds, chest non-tender, lungs clear Cardiovascular: regular rate/rhythm Gastrointestinal: normal bowel sounds, soft, non-tender Extremities: normal inspection, no edema Last 48 Hrs of Labs/Jerome: Laboratory Tests 12/18/17 0358: Anion Gap 14, Estimated GFR 25 L, Glucose 112 H, Calcium 8.7, Phosphorus 3.1, Magnesium 1.9, Total Bilirubin 0.7, AST 28, ALT 38, Albumin 3.1 L, CBC w Diff MAN DIFF ORDERED, RBC 4.19 L, MCV 90.1, MCH 29.6, MCHC 32.8 L, RDW 13.7, MPV 8.9, Gran % 91.4 H, Lymphocytes % 3.9 L, Monocytes % 4.7, Eosinophils % 0, Basophils % 0, Absolute Granulocytes 16.5 H, Segmented Neutrophils 77 H, Band Neutrophils 14 H, Absolute Lymphocytes 0.7 L, Lymphocytes 5 L, Monocytes 4, Absolute Monocytes 0.8 H, Absolute Eosinophils 0, Absolute Basophils 0, Platelet Estimate ADEQUATE, Normocytic RBCs VERIFIED, Normochromic RBCs VERIFIED 12/17/17 2235: Anion Gap 12, Estimated GFR 27 L, Glucose 101 H, Lactic Acid 1.3, Calcium 8.5, Phosphorus 3.5, Magnesium 1.6, Total Bilirubin 0.9, AST 21, ALT 36, Troponin I < 0.01, Albumin 3.3 L, CBC w Diff MAN DIFF ORDERED, RBC 4.34, MCV 88.9, MCH 29.9, MCHC 33.6, RDW 13.8, MPV 8.3, Gran % 86.4 H, Lymphocytes % 12.4 L, Monocytes % 1.1 L, Eosinophils % 0.1, Basophils % 0, Absolute Granulocytes 3.3, Segmented Neutrophils 78 H, Band Neutrophils 8 H, Absolute Lymphocytes 0.5 L, Lymphocytes 11 L, Monocytes 2, Absolute Monocytes 0 L, Eosinophils 1, Absolute Eosinophils 0, Absolute Basophils 0, Platelet Estimate ADEQUATE, Normocytic RBCs VERIFIED, Normochromic RBCs VERIFIED 12/17/17 2214: Troponin I Cancelled, CBC w Diff Cancelled, WBC Cancelled, RBC Cancelled, Hgb Cancelled, Hct Cancelled, MCV Cancelled, MCH Cancelled, MCHC Cancelled, RDW Cancelled, Plt Count Cancelled, MPV Cancelled 12/17/17 1806: Lactic Acid 0.6 L 12/17/17 1600: D-Dimer High Sensitivty 548 H 12/17/17 1505: Urine Opiates Screen 1073.00, Methadone Screen 42, Barbiturate Screen < 60, Ur Phencyclidine Scrn < 6.00, Amphetamines Screen < 100, U Benzodiazepines Scrn > 800 H, Urine Cocaine Screen < 50, Urine Cannabis Screen < 5.00, Urine Color YEL , Urine Clarity HAZY H, Urine pH 6.5, Ur Specific Disputanta 1.020, Urine Protein >=300 H, Urine Ketones NEG, Urine Nitrite POS H, Urine Bilirubin NEG, Urine Urobilinogen 0.2, Ur Leukocyte Esterase MOD H, Ur Microscopic SEDIMENT EXAMINED , Urine RBC 25-50 H, Urine WBC 50-75 H, Urine Bacteria MANY H, Urine Hemoglobin LARGE H, Urine Glucose NEG 12/17/17 1444: Lactic Acid 1.2 12/17/17 1440: pH 7.39, pCO2 41, pO2 73 L, HCO3 24, ABG O2 Sat (Measured) 91.0 L, P-50 (Temp Corrected) N, Carboxyhemoglobin 2.6, O2 Concentration % 2L, Temperature 99.9, O2 Delivery Method N/C, Phlebotomy Draw Site RIGHT RADIAL 12/17/17 1430: Anion Gap 15, Estimated GFR 30 L, BUN/Creatinine Ratio 15.9, Glucose 127 H, Calcium 9.6, Total Bilirubin 0.9, AST 22, ALT 41, Alkaline Phosphatase 111, Total Protein 6.9, Albumin 4.4, Globulin 2.5, Albumin/Globulin Ratio 1.8, CBC w Diff MAN DIFF ORDERED, RBC 5.01, MCV 88.6, MCH 29.4, MCHC 33.2, RDW 13.3, MPV 8.4, Gran % 89.7 H, Lymphocytes % 5.9 L, Monocytes % 4.1, Eosinophils % 0, Basophils % 0.3, Absolute Granulocytes 16.0 H, Segmented Neutrophils 85 H, Band Neutrophils 2, Absolute Lymphocytes 1.0 L, Lymphocytes 8 L, Monocytes 4, Absolute Monocytes 0.7 H, Eosinophils 1, Absolute Eosinophils 0, Absolute Basophils 0.1, Platelet Estimate ADEQUATE, Normocytic RBCs VERIFIED, Normochromic RBCs VERIFIED, Serum Alcohol < 10.0 12/17/17 1000: Sodium Cancelled, Potassium Cancelled, Chloride Cancelled, Carbon Dioxide Cancelled, Anion Gap Cancelled, BUN Cancelled, Creatinine Cancelled, Glucose Cancelled, Calcium Cancelled, Phosphorus Cancelled, Magnesium Cancelled, Total Bilirubin Cancelled, AST Cancelled, ALT Cancelled, Albumin Cancelled Assessment/Plan CRCU Impression/Plan: Patient is a 62-year-old female with multiple medical problems presenting this admission with evaluation of altered mental status. Patient was found to have sepsis of urological origin with gram-negative bacteremia. Patient was recently admitted to the general medicine floor. However overnight was found to be in acute hypoxic respiratory failure with fever of 105 and encephalopathic likely secondary to sepsis of urological origin and opiate intoxication. Patient was continued on IV antibiotics and was seen by infectious disease. 1. Encephalopathy 2/2 Sepsis of Urological Origin Patient was febrile overnight with a Tmax of 105. Patien in the ICU received cooling blankets and IV tyelenol. Patient's temeprature downtrended and patient was afebrile this morning. Patient's mental status has improved. Patient is currently alert and oriented 3. Patient's blood and urine cultures are growing gram-negative rods. Patient was continued on IV ceftriaxone. Patient was seen by ID today. - Continue to monitor mental status which appears to have improved today. - Continue to monitor vitals and WBC - Continue to follow up urine and blood cultures for identification and sensitivities - Continue IV ceftriaxone per ID - ID consulted. Appreciate recommendations. - Urology consulted for nonobstructive kidney stone - Hold opiates and sedatives and setting of AMS - Remove Loera catheter 2. Acute hypoxic respiratory failure secondary to sepsis and opiate use and possible COPD exacerbation - Continue oxygen supplementation and wean down as tolerated. - Continue TRC - Continue DuoNeb treatments - IV Solu-Medrol discontinued. - Start prednisone with a quick taper. 3. History of hypertension Continue amlodipine, hydralazine, labetalol 4. History of hyperlipidemia Continue Lipitor 5. Mental health Continue Cymbalta, Lyrica 6. Chronic back pain Hold opiates and setting of encephalopathy IV Tylenol for pain control DVT prophylaxis: Heparin subcutaneous Code: Full code Consult Acknowledgment - Thank you for your consult request. Yo La MD 12/18/17 1131: Assessment/Plan CRCU Other Findings/Comments: Yo Martinez M.D. have examined this patient, reviewed available EMR data, personally reviewed images, discussed with resident/PA/CURTAIN SUPERVISOR, discussed management plan with housestaff and nursing staff, discussed managment plan all of healthcare providers, discussed management plan with patient and/or family, agreed with resident/PA/CURTAIN SUPERVISOR. The past history and parts of the chart have been autopopulated. Impression 62-year-old woman pain history and oxycodone dependence admitted to the ICU with currently resolved altered mental status and sepsis of urological origin. Plan Urology consultation Infectious disease consultation is appreciated Currently on ceftriaxone Follow-up cultures Doesn't seem to have an obvious exacerbation of COPD given a short course of prednisone 40 mg for 4 more days Recommend outpatient pulmonary follow-up to determine pulmonary function testing necessity and further COPD care TTS 40 min DG to GM Consult Acknowledgment - Thank you for your consult request.
[2017-12-18 08:00] VITALS: BP 140/80
--- NOTE | 2017-12-18 11:04 | Cons- Infect Disease ---
General Information and HPI Consulting Request Date of Consult: 12/18/17 Requested By: Janet Lainez MD Reason for Consult: Sepsis of urologic origin Source of Information: patient, family, old records History of Present Illness: This is a 42-year-old woman with a history of COPD, hypertension, chronic back pain, status post multiple back surgeries, maintained on Oxycodone, admitted on December 17 after she was brought to the emergency room by her because of increased confusion and decreased responsiveness over the past 2 days. On admission she was initially afebrile, with a blood pressure of 154/102. Laboratory data revealed a white blood cell count of 18,000, BUN/creatinine 27 and 1.7, with normal liver enzymes, ABG 7.39/41/73 on 2 L/m. Urinalysis 25-50 RBCs/50-75 WBCs. Chest x-ray was negative. Renal ultrasound was negative for hydronephrosis. She was begun on Ceftriaxone and admitted to the floor. Later in the evening she became agitated with a fever to 105, heart rate of 128 and a blood pressure of 200/100 and she was transferred to the ICU and begun on Solumedrol. A CT of the head was negative. A CT of the abdomen and pelvis revealed a nonobstructive 8 mm stone in the lower pole of the left kidney with no hydronephrosis. Overnight blood cultures 2 were reported positive for gram negative rods. She remained febrile overnight but she has improved today and is able to provide a history. She does report chronic pain but has no new complaints at this time. Allergies/Medications Allergies: Coded Allergies: codeine (ITCHING, HIVES 12/16/15) Home Med List: Albuterol Sulfate (Proair Hfa) 90 MCG HFA.AER.AD 2 PUF INH Q4-6 PRN PRN SHORTNESS OF BREATH (Reported) Albuterol Sulfate 0.63 MG/3 ML VIAL.NEB 1 Vial INH/RIA 4 TIMES/DAY PRN SHORTNESS OF BREATH (Reported) Alprazolam 0.25 MG TABLET 1 TAB PO TIDPRN PRN ANXIETY (Reported) Amlodipine Besylate (Norvasc) 10 MG TABLET 1 TAB PO DAILY HEART (Reported) Atorvastatin Calcium 80 MG TABLET 1 TAB PO 1700 CHOLESTEROL (Reported) Duloxetine HCl 30 MG CAPSULE.DR 1 CAP PO DAILY DEPRESSION (Reported) Hydralazine HCl 25 MG TABLET 1 TAB PO BID HEART (Reported) Labetalol HCl 100 MG TABLET 1 TAB PO BID HEART (Reported) Oxycodone HCl 10 MG TABLET 1 TAB PO TIDPRN PRN PAIN (Reported) Oxycodone HCl (Oxycontin) 30 MG TAB.ER.12H 1 TAB PO TID PAIN (Reported) Pregabalin (Lyrica) 100 MG CAPSULE 1 CAP PO TID PAIN (Reported) Trazodone HCl 50 MG TABLET 1.5 TAB PO QPM SLEEP (Reported) Umeclidinium Brm/Vilanterol Tr (Anoro Ellipta 62.5-25 Mcg INH) 62.5 MCG-25 MCG/ ACTUATION BLST.W.DEV 1 PUFF INH DAILY SHORTNESS OF BREATH (Reported) Past History Travel History Traveled to [place] past 21 day No Medical History Neurological: NONE EENT: NONE Cardiovascular: hypertension Respiratory: COPD Gastrointestinal: NONE Hepatic: NONE Renal: chronic kidney disease Musculoskeletal: chronic back pain Psychiatric: anxiety, chronic pain disorder, PAIN MANAGEMENT Endocrine: NONE Blood Disorders: NONE Cancer(s): NONE LUG LOADER/Reproductive: NONE History of MRSA: No History of VRE: No History of CDIFF: No Isolation History: Standard Influenza Vaccine: 07/29/17 Surgical History Surgical History: , multiple back surgeries Family History Relations & Conditions If Any: FATHER, , Age 50-60; Cause: Myocardial infarct. MOTHER (breast cancer). . Psychosocial History Who Do You Live With? spouse Services at Home: None Primary Language: Chinese Smoking Status: Current Everyday Smoker (100 pack year history) ETOH Use: denies use Illicit Drug Use: denies illicit drug use Functional Ability ADLs Independent: dressing, eating, toileting, bathing. Ambulation: cane IADLs Independent: shopping, housework, finances, food prep, telephone, transportation , medication admin. Review of Systems Review of Systems All Other Systems: Reviewed and Negative Exam & Diagnostic Data Last 24 Hrs of Vital Signs/I&O Vital Signs Date Time Temp Pulse Resp B/P B/P Pulse O2 O2 Flow FiO2 Mean Ox Delivery Rate 12/19 907 92 135/84 12/18 0908 92 135/84 12/18 0908 92 135/84 12/18 09 Nasal 4.0L Cannula 03/23 0906 94 Nasal 4.0L Cannula 12/18 0400 94 Venti Mask 35% 12/18 0000 97 Venti Mask 40% 12/18 0000 101.6 102 19 126/78 97 Venti Mask 40% 12/17 2300 103.2 12/170 104.1 12/172 92 Nasal 4.5L Cannula 12/170 105.1 12/175 105.1 125 22 200/100 94 Nasal 6.0L Cannula 12/175 93 Nasal 4.5L Cannula 12/18 2103 101.3 12/17 210 110 160/92 12/17 210 110 160/92 12/17 2053 101.3 110 22 160/92 92 Nasal Cannula 12/17 1859 97.4 93 20 126/78 92 Nasal 3.5L Cannula 12/17 1626 99.2 102 22 141/90 93 Nasal 3.0L Cannula 12/17 1512 109 22 92 Nasal 4.0L Cannula 12/17 1450 85 Nasal Cannula 12/17 1440 108 22 144/95 90 Nasal 3.0L Cannula 12/17 1401 99.9 128 22 154/102 89 Room Air Intake & Output 12/18 1600 12/18 0800 12/18 0000 Intake Total 565 1340 Output Total 350 40 Balance 215 1300 Intake, IV 565 1300 Intake, Oral 0 40 Number 0 1 Bowel Movements Output, Urine 350 40 Patient 136 lb 138 lb Weight Weight Bed scale Bed scale Measurement Method Physical Exam Other Physical Findings: MAXIMUM TEMPERATURE 105.1 on steroids. She is awake and alert in no acute distress. Skin reveals no rash. HEENT negative. Neck is supple with no adenopathy. Lungs are clear. Heart regular rhythm with no murmur. Abdomen is soft, mildly tender on palpation of the left upper quadrant, with no guarding or rebound, positive bowel sounds. Back left CVA tenderness. Extremities no cyanosis, clubbing or edema. Neuro is without focality. Loera catheter is in place. Last 24 Hours of Lab Results: Laboratory Tests 12/18 12/17 0358 2235 Chemistry Sodium (137 - 145 mmol/L) 147 H 143 Potassium (3.5 - 5.1 mmol/L) 3.9 4.0 Chloride (98 - 107 mmol/L) 110 H 108 H Carbon Dioxide (22 - 30 mmol/L) 22 23 Anion Gap (5 - 16) 14 12 BUN (7 - 17 mg/dL) 29 H 29 H Creatinine (0.5 - 1.0 mg/dL) 2.0 H 1.9 H Estimated GFR (>60 ml/min) 25 L 27 L Glucose (65 - 99 mg/dL) 112 H 101 H Lactic Acid (0.7 - 2.1 mmol/L) 1.3 Calcium (8.4 - 10.2 mg/dL) 8.7 8.5 Phosphorus (2.5 - 4.5 mg/dL) 3.1 3.5 Magnesium (1.6 - 2.3 mg/dL) 1.9 1.6 Total Bilirubin (0.2 - 1.3 mg/dL) 0.7 0.9 AST (14 - 36 U/L) 28 21 ALT (9 - 52 U/L) 38 36 Troponin I (< 0.11 ng/ml) < 0.01 Albumin (3.5 - 5.0 g/dL) 3.1 L 3.3 L Hematology CBC w Diff MAN DIFF ORDERED MAN DIFF ORDERED WBC (4.8 - 10.8 /CUMM) 18.1 H 3.8 L RBC (4.20 - 5.40 /CUMM) 4.19 L 4.34 Hgb (12.0 - 16.0 G/DL) 12.4 13.0 Hct (37 - 47 %) 37.8 38.6 MCV (81.0 - 99.0 FL) 90.1 88.9 MCH (27.0 - 31.0 PG) 29.6 29.9 MCHC (33.0 - 37.0 G/DL) 32.8 L 33.6 RDW (11.5 - 14.5 %) 13.7 13.8 Plt Count (130 - 400 /CUMM) 137 145 MPV (7.4 - 10.4 FL) 8.9 8.3 Gran % (42.2 - 75.2 %) 91.4 H 86.4 H Lymphocytes % (20.5 - 51.1 %) 3.9 L 12.4 L Monocytes % (1.7 - 9.3 %) 4.7 1.1 L Eosinophils % (0 - 5 %) 0 0.1 Basophils % (0.0 - 2.0 %) 0 0 Absolute Granulocytes (1.4 - 6.5 /CUMM) 16.5 H 3.3 Segmented Neutrophils (42.2 - 75.2 %) 77 H 78 H Band Neutrophils (0.0 - 5.0 %) 14 H 8 H Absolute Lymphocytes (1.2 - 3.4 /CUMM) 0.7 L 0.5 L Lymphocytes (20.5 - 51.1 %) 5 L 11 L Monocytes (1.7 - 9.3 %) 4 2 Absolute Monocytes (0.10 - 0.60 /CUMM) 0.8 H 0 L Eosinophils (0 - 5.0 %) 1 Absolute Eosinophils (0.0 - 0.7 /CUMM) 0 0 Absolute Basophils (0.0 - 0.2 /CUMM) 0 0 Platelet Estimate (ADEQUATE) ADEQUATE ADEQUATE Normocytic RBCs VERIFIED VERIFIED Normochromic RBCs VERIFIED VERIFIED 12/17 12/17 12/17 2214 1806 1600 Chemistry Lactic Acid (0.7 - 2.1 mmol/L) 0.6 L Troponin I Cancelled Coagulation D-Dimer High Sensitivty (0 - 243 ng/ml) 548 H Hematology CBC w Diff Cancelled WBC Cancelled RBC Cancelled Hgb Cancelled Hct Cancelled MCV Cancelled MCH Cancelled MCHC Cancelled RDW Cancelled Plt Count Cancelled MPV Cancelled 12/17 12/17 12/17 1505 1444 1440 Blood Gas pH (7.35 - 7.45 PH) 7.39 pCO2 (35 - 45 TORR) 41 pO2 (80 - 100 TORR) 73 L HCO3 (21 - 28 MEQ/L) 24 ABG O2 Sat (Measured) (>96.0 %) 91.0 L P-50 (Temp Corrected) N Carboxyhemoglobin (1.5 - 5.0 %) 2.6 O2 Concentration % 2L Temperature (97.0 - 100.0 FARH) 99.9 O2 Delivery Method N/C Chemistry Lactic Acid (0.7 - 2.1 mmol/L) 1.2 Miscellaneous Phlebotomy Draw Site RIGHT RADIAL Toxicology Urine Opiates Screen (>2000 NG/ML) 1073.00 Methadone Screen (>300 NG/ML) 42 Barbiturate Screen (>200 NG/ML) < 60 Ur Phencyclidine Scrn (>25 NG/ML) < 6.00 Amphetamines Screen (>1000 NG/ML) < 100 U Benzodiazepines Scrn (>200 NG/ML) > 800 H Urine Cocaine Screen (>300 NG/ML) < 50 Urine Cannabis Screen (>50 NG/ML) < 5.00 Urines Urine Color (YEL,AMB,STR) YEL Urine Clarity (CLEAR) HAZY H Urine pH (5.0 - 8.0) 6.5 Ur Specific [place] (1.001 - 1.035) 1.020 Urine Protein (NEG,<30 MG/DL) >=300 H Urine Ketones (NEG) NEG Urine Nitrite (NEG) POS H Urine Bilirubin (NEG) NEG Urine Urobilinogen (0.1 - 1.0 EU/dl) 0.2 Ur Leukocyte Esterase (NEG) MOD H Ur Microscopic SEDIMENT EXAMINED Urine RBC (0 - 5 /HPF) 25-50 H Urine WBC (0 - 2 /HPF) 50-75 H Urine Bacteria (NEG/NONE) MANY H Urine Hemoglobin (NEG) LARGE H Urine Glucose (N MG/DL) NEG 12/17 1430 Chemistry Sodium (137 - 145 mmol/L) 146 H Potassium (3.5 - 5.1 mmol/L) 4.7 Chloride (98 - 107 mmol/L) 105 Carbon Dioxide (22 - 30 mmol/L) 26 Anion Gap (5 - 16) 15 BUN (7 - 17 mg/dL) 27 H Creatinine (0.5 - 1.0 mg/dL) 1.7 H Estimated GFR (>60 ml/min) 30 L BUN/Creatinine Ratio (7 - 25 %) 15.9 Glucose (65 - 99 mg/dL) 127 H Calcium (8.4 - 10.2 mg/dL) 9.6 Total Bilirubin (0.2 - 1.3 mg/dL) 0.9 AST (14 - 36 U/L) 22 ALT (9 - 52 U/L) 41 Alkaline Phosphatase (<127 U/L) 111 Total Protein (6.3 - 8.2 g/dL) 6.9 Albumin (3.5 - 5.0 g/dL) 4.4 Globulin (1.9 - 4.2 gm/dL) 2.5 Albumin/Globulin Ratio (1.1 - 2.2 %) 1.8 Hematology CBC w Diff MAN DIFF ORDERED WBC (4.8 - 10.8 /CUMM) 17.8 H RBC (4.20 - 5.40 /CUMM) 5.01 Hgb (12.0 - 16.0 G/DL) 14.7 Hct (37 - 47 %) 44.4 MCV (81.0 - 99.0 FL) 88.6 MCH (27.0 - 31.0 PG) 29.4 MCHC (33.0 - 37.0 G/DL) 33.2 RDW (11.5 - 14.5 %) 13.3 Plt Count (130 - 400 /CUMM) 183 MPV (7.4 - 10.4 FL) 8.4 Gran % (42.2 - 75.2 %) 89.7 H Lymphocytes % (20.5 - 51.1 %) 5.9 L Monocytes % (1.7 - 9.3 %) 4.1 Eosinophils % (0 - 5 %) 0 Basophils % (0.0 - 2.0 %) 0.3 Absolute Granulocytes (1.4 - 6.5 /CUMM) 16.0 H Segmented Neutrophils (42.2 - 75.2 %) 85 H Band Neutrophils (0.0 - 5.0 %) 2 Absolute Lymphocytes (1.2 - 3.4 /CUMM) 1.0 L Lymphocytes (20.5 - 51.1 %) 8 L Monocytes (1.7 - 9.3 %) 4 Absolute Monocytes (0.10 - 0.60 /CUMM) 0.7 H Eosinophils (0 - 5.0 %) 1 Absolute Eosinophils (0.0 - 0.7 /CUMM) 0 Absolute Basophils (0.0 - 0.2 /CUMM) 0.1 Platelet Estimate (ADEQUATE) ADEQUATE Normocytic RBCs VERIFIED Normochromic RBCs VERIFIED Toxicology Serum Alcohol (<10 MG/DL) < 10.0 Last 24 Hours of [place] Results: Blood cultures 2 December 17 positive for gram-negative rods Urine culture December 17 greater than 100,000 colonies of gram negative rods Repeat urine culture late on December 17 negative Diagnostic Data Recent Imaging Findings: Chest x-ray negative. Renal ultrasound negative for hydronephrosis. CT of the head negative. CT of the abdomen and pelvis revealed a nonobstructive 8 mm stone in the lower pole of the left kidney with no hydronephrosis. Assessment/Plan Assessment/Plan Impression: This is a 42-year-old woman with a history of chronic back pain, maintained on Oxycodone, admitted on December 17 because of increased confusion and decreased responsiveness over the past 2 days, found initially to be afebrile with a leukocytosis and renal failure, with the development of a fever over 105 and with blood and urine cultures positive for gram-negative rods. Her clinical picture is consistent with sepsis of urologic origin, with left CVA tenderness in the setting of positive blood and urine cultures. Her CT scan does reveal a stone in the lower pole of the left kidney and, though it is not felt to be obstructive, Urology evaluation would be appropriate, given the severity of her presentation, to rule out the need for any urologic intervention. Her urine culture appears to be Escherichia coli and she can be continued on Ceftriaxone pending final cultures. Suggestion: 1. Urology evaluation 2. Reevaluate need for continuation of steroids 3. Follow-up final cultures 4. Continue Ceftriaxone 1 g IV every 24 hours pending above Consult Acknowledgment - Thank you for your consult request.
--- NOTE | 2017-12-18 18:19 | Cons- Urology ---
General Information and HPI Consulting Request Date of Consult: 12/18/17 Requested By: Janet Lainez MD Reason for Consult: Urosepsis, L renal calculus and atrophic R kidney Source of Information: patient, old records Exam Limitations: no limitations History of Present Illness: 62 year old female with multiple comorbidities including chronic pain on chronic oxycodone brought to ER by her for lethargy and decrease responsiveness. She was initially afebrile but then began spiking fevers to as high as 105. Also with agitation and mental status change requiring admission to ICU. U/A c/ w UTI. Urine culture and blood culture growing gram neg rods. CT scan shows no hydronephrosis. R kidney is atrophic. L kidney is normal size with a non obstructing 1 cm stone in the mid to lower pole. There is no hydronephrosis of either kidney. She states that while she had multiple kidney infections. Also she has known about L kidney stone for about 2 years as it was an incidental finding on a CT done for other reasons at that time. It has been asymptomatic since. Currently on ceftriaxone and improving. Transferred out of ICU today Allergies/Medications Allergies: Coded Allergies: codeine (ITCHING, HIVES 12/16/15) Home Med List: Albuterol Sulfate (Proair Hfa) 90 MCG HFA.AER.AD 2 PUF INH Q4-6 PRN PRN SHORTNESS OF BREATH (Reported) Albuterol Sulfate 0.63 MG/3 ML VIAL.NEB 1 Vial INH/RIA 4 TIMES/DAY PRN SHORTNESS OF BREATH (Reported) Alprazolam 0.25 MG TABLET 1 TAB PO TIDPRN PRN ANXIETY (Reported) Amlodipine Besylate (Norvasc) 10 MG TABLET 1 TAB PO DAILY HEART (Reported) Atorvastatin Calcium 80 MG TABLET 1 TAB PO 1700 CHOLESTEROL (Reported) Duloxetine HCl 30 MG CAPSULE.DR 1 CAP PO DAILY DEPRESSION (Reported) Hydralazine HCl 25 MG TABLET 1 TAB PO BID HEART (Reported) Labetalol HCl 100 MG TABLET 1 TAB PO BID HEART (Reported) Oxycodone HCl 10 MG TABLET 1 TAB PO TIDPRN PRN PAIN (Reported) Oxycodone HCl (Oxycontin) 30 MG TAB.ER.12H 1 TAB PO TID PAIN (Reported) Pregabalin (Lyrica) 100 MG CAPSULE 1 CAP PO TID PAIN (Reported) Trazodone HCl 50 MG TABLET 1.5 TAB PO QPM SLEEP (Reported) Umeclidinium Brm/Vilanterol Tr (Anoro Ellipta 62.5-25 Mcg INH) 62.5 MCG-25 MCG/ ACTUATION BLST.W.DEV 1 PUFF INH DAILY SHORTNESS OF BREATH (Reported) Current Medications: Current Medications Sig/Manoj Start time Last Medication Dose Route Stop Time Status Admin Acetaminophen 1,000 MG Q6P PRN 12/17 2214 AC IV Acetaminophen 1,000 MG ONCE ONE 12/17 2144 DC 12/17 IV 12/17 214 2200 Acetaminophen 650 MG Q6P PRN 12/17 1745 AC 12/17 PO 2104 Albuterol Sulfate 3 ML Q4P PRN 12/18 0915 AC INH Alprazolam 0.25 MG TIDPRN PRN 12/18 1715 AC 12/18 PO 12/25 1714 1708 Amlodipine Besylate 10 MG DAILY 12/18 1000 AC 12/18 PO 0908 Atorvastatin Calcium 80 MG 1700 12/18 1700 AC 12/18 PO 1658 Ceftriaxone Sodium 1,000 MG DAILY 12/18 1000 AC 12/18 IV 0907 Duloxetine HCl 30 MG DAILY 12/18 1000 AC 12/18 PO 0908 Enoxaparin Sodium 40 MG DAILY 12/17 1740 NV 12/17 SC 1821 Heparin Sodium 5,000 UNIT Q8 12/18 0600 AC 12/18 (Porcine) SC 1426 Hydralazine HCl 25 MG BID 12/17 2200 AC 12/18 PO 0908 Labetalol HCl 100 MG BID 12/17 2200 AC 12/18 PO 0908 Methylprednisolone 40 MG Q8 12/18 0600 DC 12/18 IV 0520 Methylprednisolone 125 MG ONCE ONE 12/17 2199 DC 12/17 IV 12/17 220 2239 Oxycodone HCl 30 MG Q12 12/18 1000 AC 12/18 PO 0908 Oxycodone HCl 10 MG .STK-MED ONE 12/18 0812 DC PO 12/18 0813 Oxycodone HCl 10 MG Q8P PRN 12/18 0330 AC 12/18 PO 1448 Prednisone 40 MG DAILY 12/19 1000 AC PO Pregabalin 100 MG TID 12/17 2200 AC 12/18 PO 1659 Sodium Chloride 1,000 ML .Q10H 12/17 1745 AC 12/18 IV 12/18 2344 1703 Sodium Chloride 1,000 ML BOLUS ONE 12/17 1615 DC 12/17 IV 12/17 1814 1623 Past History Medical History Neurological: NONE EENT: NONE Cardiovascular: hypertension Respiratory: COPD Gastrointestinal: NONE Hepatic: NONE Renal: chronic kidney disease Musculoskeletal: chronic back pain Psychiatric: anxiety, chronic pain disorder, PAIN MANAGEMENT Endocrine: NONE Blood Disorders: NONE Cancer(s): NONE USABILITY STRATEGIST/Reproductive: NONE Surgical History Pertinent Surgical History: , multiple back surgeries Family History Relations & Conditions If Any: FATHER, , Age 50-60; Cause: Myocardial infarct. MOTHER (breast cancer). . Psychosocial History Who Do You Live With? spouse Services at Home: None Primary Language: Indonesian Smoking Status: Current Everyday Smoker (100 pack year history) ETOH Use: denies use Illicit Drug Use: denies illicit drug use Functional Ability ADLs Independent: dressing, eating, toileting, bathing. Ambulation: cane IADLs Independent: shopping, housework, finances, food prep, telephone, transportation , medication admin. Exam & Diagnostic Data Vital Signs and I&O Vital Signs Date Time Temp Pulse Resp B/P B/P Pulse O2 O2 Flow FiO2 Mean Ox Delivery Rate 12/18 1600 90 Nasal 4.0L Cannula 12/18 0908 92 135/84 12/18 0908 92 135/84 12/18 0908 92 135/84 12/18 0906 Nasal 4.0L Cannula 12/18 0906 94 Nasal 4.0L Cannula 12/18 0800 Nasal 4.0L Cannula 12/18 0800 97.1 90 18 140/80 94 Venti Mask 35% 12/18 0400 94 Venti Mask 35% 12/18 0000 97 Venti Mask 40% 12/18 0000 101.6 102 19 126/78 97 Venti Mask 40% 12/17 2300 103.2 12/170 104.1 12/17 2221 92 Nasal 4.5L Cannula 12/170 105.1 12/17 2144 105.1 125 22 200/100 94 Nasal 6.0L Cannula 12/17 2144 93 Nasal 4.5L Cannula 12/18 2103 101.3 12/18 2103 110 160/92 12/17 2102 110 160/92 12/17 2053 101.3 110 22 160/92 92 Nasal Cannula 12/17 1859 97.4 93 20 126/78 92 Nasal 3.5L Cannula Intake & Output 12/18 1600 12/18 0800 12/18 0000 12/17 1600 12/17 0812/17 0000 Intake Total 7481 951 1698 Output Total 500 350 40 100 Balance 440 152 9499 -100 Intake, IV 483 971 0254 Intake, Oral 460 0 40 Number 2 0 1 Bowel Movements Output, Urine 500 350 40 100 Patient 136 lb 138 lb 137 lb Weight Weight Bed scale Bed scale Measurement Method Alert and oriented. No acute distress Back: mild R CVA tenderness Abd: Midline surgical scar well healed. Soft and non tender Laboratory Tests 12/18 12/17 0358 2235 Chemistry Sodium (137 - 145 mmol/L) 147 H 143 Potassium (3.5 - 5.1 mmol/L) 3.9 4.0 Chloride (98 - 107 mmol/L) 110 H 108 H Carbon Dioxide (22 - 30 mmol/L) 22 23 Anion Gap (5 - 16) 14 12 BUN (7 - 17 mg/dL) 29 H 29 H Creatinine (0.5 - 1.0 mg/dL) 2.0 H 1.9 H Estimated GFR (>60 ml/min) 25 L 27 L Glucose (65 - 99 mg/dL) 112 H 101 H Lactic Acid (0.7 - 2.1 mmol/L) 1.3 Calcium (8.4 - 10.2 mg/dL) 8.7 8.5 Phosphorus (2.5 - 4.5 mg/dL) 3.1 3.5 Magnesium (1.6 - 2.3 mg/dL) 1.9 1.6 Total Bilirubin (0.2 - 1.3 mg/dL) 0.7 0.9 AST (14 - 36 U/L) 28 21 ALT (9 - 52 U/L) 38 36 Troponin I (< 0.11 ng/ml) < 0.01 Albumin (3.5 - 5.0 g/dL) 3.1 L 3.3 L Hematology CBC w Diff MAN DIFF ORDERED MAN DIFF ORDERED WBC (4.8 - 10.8 /CUMM) 18.1 H 3.8 L RBC (4.20 - 5.40 /CUMM) 4.19 L 4.34 Hgb (12.0 - 16.0 G/DL) 12.4 13.0 Hct (37 - 47 %) 37.8 38.6 MCV (81.0 - 99.0 FL) 90.1 88.9 MCH (27.0 - 31.0 PG) 29.6 29.9 MCHC (33.0 - 37.0 G/DL) 32.8 L 33.6 RDW (11.5 - 14.5 %) 13.7 13.8 Plt Count (130 - 400 /CUMM) 137 145 MPV (7.4 - 10.4 FL) 8.9 8.3 Gran % (42.2 - 75.2 %) 91.4 H 86.4 H Lymphocytes % (20.5 - 51.1 %) 3.9 L 12.4 L Monocytes % (1.7 - 9.3 %) 4.7 1.1 L Eosinophils % (0 - 5 %) 0 0.1 Basophils % (0.0 - 2.0 %) 0 0 Absolute Granulocytes (1.4 - 6.5 /CUMM) 16.5 H 3.3 Segmented Neutrophils (42.2 - 75.2 %) 77 H 78 H Band Neutrophils (0.0 - 5.0 %) 14 H 8 H Absolute Lymphocytes (1.2 - 3.4 /CUMM) 0.7 L 0.5 L Lymphocytes (20.5 - 51.1 %) 5 L 11 L Monocytes (1.7 - 9.3 %) 4 2 Absolute Monocytes (0.10 - 0.60 /CUMM) 0.8 H 0 L Eosinophils (0 - 5.0 %) 1 Absolute Eosinophils (0.0 - 0.7 /CUMM) 0 0 Absolute Basophils (0.0 - 0.2 /CUMM) 0 0 Platelet Estimate (ADEQUATE) ADEQUATE ADEQUATE Normocytic RBCs VERIFIED VERIFIED Normochromic RBCs VERIFIED VERIFIED 12/17 2213 Chemistry Troponin I Cancelled Hematology CBC w Diff Cancelled WBC Cancelled RBC Cancelled Hgb Cancelled Hct Cancelled MCV Cancelled MCH Cancelled MCHC Cancelled RDW Cancelled Plt Count Cancelled MPV Cancelled Assessment/Plan Assessment/Plan Imp: 1. Probable non obstructive L pyelonephritis 2. Non obstructing L renal stone 3. Atrophic R kidney 4. Multiple medical issues Plan: 1. Agree with IV ceftriaxone and adjust as appropriate based on cultures 2. No indication for ureteral stent or other urologic intervention at this time 3. When patient is recovered it would be reasonable to treat L renal stone with ESWL Consult Acknowledgment - Thank you for your consult request.
[2017-12-19 05:56] VITALS: BP 122/80
--- NOTE | 2017-12-19 08:27 | PN- Housestaff ---
Don Arias 12/19/17 0827: Subjective Follow-up For: AMS, possibly secondary to infection vs opiate use UTI, possible pyelonephritis Acute hypoxic respiratory failure most likely 2/2 COPD Subjective: Patient reports R lower back pain and RLE pain Review of Systems Constitutional: Reports: see HPI. Objective Last 24 Hrs of Vital Signs/I&O Vital Signs Date Time Temp Pulse Resp B/P B/P Pulse O2 O2 Flow FiO2 Mean Ox Delivery Rate 12/19 0854 76 122/80 12/19 0854 76 122/80 12/19 0854 76 122/80 12/19 0556 97.7 76 20 122/80 93 Nasal 4.0L Cannula 12/19 0000 90 Nasal 4.0L Cannula 12/18 2120 86 128/70 12/18 2120 86 128/70 12/18 1600 90 Nasal 4.0L Cannula Intake & Output 12/19 1600 12/19 0800 12/19 0000 Intake Total 240 480 Output Total Balance 240 480 Intake, Oral 240 480 Number 0 1 Bowel Movements Physical Exam General Appearance: Alert, Oriented X3, Cooperative Cardiovascular: Regular Rate, Normal S1, Normal S2 Lungs: Clear to Auscultation, Normal Air Movement Extremities: R knee healing wound Current Medications: Current Medications Sig/Manoj Start time Last Medication Dose Route Stop Time Status Admin Acetaminophen 1,000 MG Q6P PRN 12/17 2215 AC IV Acetaminophen 650 MG Q6P PRN 12/17 1745 AC 12/17 PO 2104 Albuterol Sulfate 3 ML Q4P PRN 12/18 0915 AC INH Alprazolam 0.25 MG TIDPRN PRN 12/18 1715 AC 12/18 PO 12/25 1714 1708 Amlodipine Besylate 10 MG DAILY 12/18 1000 AC 12/19 PO 0854 Atorvastatin Calcium 80 MG 1700 12/18 1700 AC 12/18 PO 1658 Ceftriaxone Sodium 1,000 MG DAILY 12/18 1000 AC 12/19 IV 0854 Duloxetine HCl 30 MG DAILY 12/18 1000 AC 12/19 PO 0854 Heparin Sodium 5,000 UNIT Q8 12/18 0600 AC 12/19 (Porcine) SC 0505 Hydralazine HCl 25 MG BID 12/17 2200 AC 12/19 PO 0854 Labetalol HCl 100 MG BID 12/17 2200 AC 12/19 PO 0854 Melatonin 5 MG ONCE ONE 12/19 0030 DC 12/19 PO 12/19 0031 0050 Methylprednisolone 40 MG Q8 12/18 0600 DC 12/18 IV 0520 Oxycodone HCl 10 MG ONCE ONE 12/19 0515 DC 12/19 PO 12/19 0516 0513 Oxycodone HCl 30 MG Q12 12/18 1000 AC 12/19 PO 0855 Oxycodone HCl 10 MG Q8P PRN 12/18 0330 AC 12/19 PO 0350 Prednisone 40 MG DAILY 12/19 1000 AC 12/19 PO 0854 Pregabalin 100 MG TID 12/17 2200 AC 12/19 PO 0854 Sodium Chloride 1,000 ML .Q10H 12/17 1745 DC 12/18 IV 12/18 2344 1703 Last 24 Hrs of Lab/Jerome Results Last 24 Hrs of Labs/Mics: Laboratory Tests 12/19/17 0655: Sodium Pending, Potassium Pending, Chloride Pending, Carbon Dioxide Pending, Anion Gap Pending, BUN Pending, Creatinine Pending, BUN/Creatinine Ratio Pending , CBC w Diff Pending, WBC Pending, RBC Pending, Hgb Pending, Hct Pending, MCV Pending, MCH Pending, MCHC Pending, RDW Pending, Plt Count Pending, MPV Pending, Gran % Pending, Lymphocytes % Pending, Monocytes % Pending, Eosinophils % Pending, Basophils % Pending, Absolute Granulocytes Pending, Absolute Lymphocytes Pending, Absolute Monocytes Pending, Absolute Eosinophils Pending, Absolute Basophils Pending Assessment/Plan Assessment: Ms. Osullivan is a 62-year-old female with a PMH significant for COPD, HTN, chronic back pain status post multiple surgeries, neuropathy, who presented to the ED with altered mental status. The patient had an episode of urinary incontinence that was malodorous. She is lethargic and confused, below her cognitive baseline. Problem list: AMS, possibly secondary to UTI vs opiate use UTI, possible pyelonephritis Acute hypoxic respiratory failure most likely 2/2 COPD Plan: Urine cultures positive for GNR continue IV ceftriaxone Start Trazadone Continue Oxycodone TID Renal ultrasound showed End-stage right kidney with Normal left kidney with cyst continue neuro checks Diet: Heart healthy DVT prophylaxis: SC heparin, ALPS CODE STATUS: Full code Problem List: 1. Altered mental status 2. UTI (urinary tract infection) Pain Ratin Pain Location: NA Pain Goal: Remain pain free Pain Plan: NA Tomorrow's Labs & Rationales: BEP for Na+, renal CBC for white ct Yo La MD 12/19/17 1255: Attending MD Review Statement Attending Statement Attending MD Statement: examined this patient, discuss w/resident/PA/CROWN BUFFER, agreed w/resident/PA/CROWN BUFFER, discussed with family, reviewed EMR data (avail), discussed with nursing, discussed with case mgmt, reviewed images, amended to note Attending Assessment/Plan: Yo Martinez M.D. have examined this patient, reviewed available EMR data, personally reviewed images, discussed with resident/PA/CROWN BUFFER, discussed management plan with housestaff and nursing staff, discussed managment plan all of healthcare providers, discussed management plan with patient and/or family, agreed with resident/PA/CROWN BUFFER. The past history and parts of the chart have been autopopulated. Impression 62-year-old woman pain history and oxycodone dependence admitted to the ICU with currently resolved altered mental status and sepsis of urological origin. Plan Urology consultation and ID consultations are appreciated Currently on ceftriaxone Follow-up cultures Doesn't seem to have an obvious exacerbation of COPD given a short course of prednisone 40 mg for a total of 5 days Recommend outpatient pulmonary follow-up to determine pulmonary function testing necessity and further COPD care Resume outpatient pain medications DVT prophylaxis at all times
[2017-12-19 08:49] LABS: ABSOLUTE BASOPHIL COUNT 0 /CUMM (0.0-0.2); ABSOLUTE EOSINOPHIL COUNT 0 /CUMM (0.0-0.7); ABSOLUTE GRANULOCYTE CT 14.7 /CUMM (1.4-6.5); ABSOLUTE LYMPH COUNT 1.7 /CUMM (1.2-3.4); ABSOLUTE MONOCYTE COUNT 0.8 /CUMM (0.10-0.60); BASOPHIL % 0 % (0.0-2.0); EOSINOPHIL % 0 % (0-5); HEMATOCRIT 34.9 % (37-47); MEAN CORPUSCULAR HGB 29.8 PG (27.0-31.0); MEAN CORPUSCULAR HGB CONC 33.1 G/DL (33.0-37.0); MEAN CORPUSCULAR VOLUME 90.2 FL (81.0-99.0); MEAN PLATELET VOLUME 9.6 FL (7.4-10.4); PLATELET COUNT 151 /CUMM (130-400); RED BLOOD CELL CT 3.87 /CUMM (4.20-5.40); WHITE BLOOD CELL COUNT 17.2 /CUMM (4.8-10.8)
[2017-12-19 10:32] LABS: GRANULOCYTE % 85.2 % (42.2-75.2)
[2017-12-19 14:11] VITALS: BP 100/70
[2017-12-19 22:13] VITALS: BP 126/82
[2017-12-20 06:06] VITALS: BP 136/82
--- NOTE | 2017-12-20 08:05 | PN- Housestaff ---
Don Arias 12/20/17 0805: Subjective Follow-up For: AMS, possibly secondary to infection vs opiate use UTI, possible pyelonephritis Acute hypoxic respiratory failure most likely 2/2 COPD Subjective: No complaints or acute events overnight Review of Systems Constitutional: Reports: see HPI. Objective Last 24 Hrs of Vital Signs/I&O Vital Signs Date Time Temp Pulse Resp B/P B/P Pulse O2 O2 Flow FiO2 Mean Ox Delivery Rate 12/20 0606 98.0 70 20 136/82 93 12/20 0000 94 Nasal 3.0L Cannula 12/19 2220 79 126/82 12/19 2220 79 126/82 12/19 2213 97.6 79 19 126/82 93 Nasal 4.0L Cannula 12/19 2140 94 Nasal 3.0L Cannula 12/19 1411 97.6 72 20 100/70 92 Nasal 4.0L Cannula 12/19 1257 91 Nasal 4.0L Cannula 12/19 0854 76 122/80 12/19 0854 76 122/80 12/19 0854 76 122/80 Intake & Output 12/20 1600 12/20 0800 12/20 0000 Intake Total 250 930 Output Total 300 900 Balance -50 30 Intake, Oral 250 930 Number 4 Bowel Movements Output, Urine 300 900 Physical Exam General Appearance: Alert, Oriented X3, Cooperative, No Acute Distress Cardiovascular: Regular Rate, Normal S1, Normal S2 Lungs: Clear to Auscultation, Normal Air Movement Abdomen: Normal Bowel Sounds, Soft, No Tenderness Current Medications: Current Medications Sig/Manoj Start time Last Medication Dose Route Stop Time Status Admin Acetaminophen 1,000 MG Q6P PRN 12/17 221 AC IV Acetaminophen 650 MG Q6P PRN 12/17 1745 AC 12/17 PO 2104 Albuterol Sulfate 3 ML Q4P PRN 12/18 0915 AC INH Alprazolam 0.25 MG TIDPRN PRN 12/18 1715 AC 12/19 PO 12/25 1714 1347 Amlodipine Besylate 10 MG DAILY 12/18 1000 AC 12/19 PO 0854 Atorvastatin Calcium 80 MG 1700 12/18 1700 AC 12/19 PO 1557 Ceftriaxone Sodium 1,000 MG DAILY 12/18 1000 AC 12/19 IV 0854 Duloxetine HCl 30 MG DAILY 12/18 1000 AC 12/19 PO 0854 Heparin Sodium 5,000 UNIT Q8 12/18 0600 AC 12/20 (Porcine) SC 0602 Hydralazine HCl 25 MG BID 12/17 2200 AC 12/19 PO 2220 Labetalol HCl 100 MG BID 12/17 220 AC 12/19 PO 2220 Oxycodone HCl 30 MG Q8 12/19 1400 AC 12/20 PO 0602 Oxycodone HCl 30 MG Q12 12/18 1000 DC 12/19 PO 0855 Oxycodone HCl 10 MG Q8P PRN 12/18 0330 AC 12/20 PO 0605 Prednisone 40 MG DAILY 12/19 1000 AC 12/19 PO 0854 Pregabalin 100 MG TID 12/17 2199 AC 12/19 PO 2226 Trazodone HCl 75 MG QPM 12/19 220 AC 12/19 PO 2220 Last 24 Hrs of Lab/Jerome Results Last 24 Hrs of Labs/Mics: Laboratory Tests 12/20/17 0700: Sodium Pending, Potassium Pending, Chloride Pending, Carbon Dioxide Pending, Anion Gap Pending, BUN Pending, Creatinine Pending, BUN/Creatinine Ratio Pending , CBC w Diff Pending, WBC Pending, RBC Pending, Hgb Pending, Hct Pending, MCV Pending, MCH Pending, MCHC Pending, RDW Pending, Plt Count Pending, MPV Pending 12/19/17 0957: Anion Gap 12, Estimated GFR 28 L, BUN/Creatinine Ratio 25.6 H Assessment/Plan Assessment: Ms. Osullivan is a 62-year-old female with a PMH significant for COPD, HTN, chronic back pain status post multiple surgeries, neuropathy, who presented to the [facility] ED with altered mental status. The patient had an episode of urinary incontinence that was malodorous. She is lethargic and confused, below her cognitive baseline. Problem list: AMS, possibly secondary to UTI vs opiate use UTI, possible pyelonephritis Acute hypoxic respiratory failure most likely 2/2 COPD Plan: Urine cultures positive for GNR discontinue IV ceftriaxone Prednisone taper Start Cephalexin Q8 continue Trazadone Continue Oxycodone TID Renal ultrasound showed End-stage right kidney with Normal left kidney with cyst continue neuro checks Diet: Heart healthy DVT prophylaxis: SC heparin, ALPS CODE STATUS: Full code Problem List: 1. UTI (urinary tract infection) 2. Altered mental status Pain Ratin Pain Location: NA Pain Goal: Remain pain free Pain Plan: NA Tomorrow's Labs & Rationales: CBC, Yo Willis MD 12/20/17 0937: Attending MD Review Statement Attending Statement Attending MD Statement: examined this patient, discuss w/resident/PA/YARN SIZER, agreed w/resident/PA/YARN SIZER, discussed with family, reviewed EMR data (avail), discussed with nursing, discussed with case mgmt, reviewed images, amended to note Attending Assessment/Plan: Yo Martinez M.D. have examined this patient, reviewed available EMR data, personally reviewed images, discussed with resident/PA/YARN SIZER, discussed management plan with housestaff and nursing staff, discussed managment plan all of healthcare providers, discussed management plan with patient and/or family, agreed with resident/PA/YARN SIZER. The past history and parts of the chart have been autopopulated. Impression 62-year-old woman pain history and oxycodone dependence admitted to the ICU with currently resolved altered mental status and sepsis of urological origin. Plan Urology consultation and ID consultations are appreciated Currently on ceftriaxone Follow-up cultures Doesn't seem to have an obvious exacerbation of COPD given a short course of prednisone 40 mg for a total of 5 days Recommend outpatient pulmonary follow-up to determine pulmonary function testing necessity and further COPD care Resume outpatient pain medications DVT prophylaxis at all times
[2017-12-20 08:18] LABS: ABSOLUTE BASOPHIL COUNT 0 /CUMM (0.0-0.2); ABSOLUTE EOSINOPHIL COUNT 0 /CUMM (0.0-0.7); ABSOLUTE LYMPH COUNT 1.5 /CUMM (1.2-3.4); ABSOLUTE MONOCYTE COUNT 0.6 /CUMM (0.10-0.60); BASOPHIL % 0.2 % (0.0-2.0); EOSINOPHIL % 0 % (0-5); HEMATOCRIT 35.3 % (37-47); MEAN CORPUSCULAR HGB 29.9 PG (27.0-31.0); MEAN CORPUSCULAR HGB CONC 33.1 G/DL (33.0-37.0); MEAN CORPUSCULAR VOLUME 90.4 FL (81.0-99.0); MEAN PLATELET VOLUME 9.6 FL (7.4-10.4); PLATELET COUNT 140 /CUMM (130-400); RBC DISTRIBUTION WIDTH 14.2 % (11.5-14.5); WHITE BLOOD CELL COUNT 11.1 /CUMM (4.8-10.8)
--- NOTE | 2017-12-20 09:50 | PN- Infect Dx ---
Subjective Subjective: Afebrile on steroids without complaints Objective Last 24 Hrs of Vital Signs/I&O Vital Signs Date Time Temp Pulse Resp B/P B/P Pulse O2 O2 Flow FiO2 Mean Ox Delivery Rate 12/20 0606 98.0 70 20 136/82 93 12/20 0000 94 Nasal 3.0L Cannula 12/19 2220 79 126/82 12/19 2220 79 126/82 12/19 2213 97.6 79 19 126/82 93 Nasal 4.0L Cannula 12/19 2140 94 Nasal 3.0L Cannula 12/19 1411 97.6 72 20 100/70 92 Nasal 4.0L Cannula 12/19 1257 91 Nasal 4.0L Cannula Intake & Output 12/20 1600 12/20 0800 12/20 0000 Intake Total 250 930 Output Total 300 900 Balance -50 30 Intake, Oral 250 930 Number 4 Bowel Movements Output, Urine 300 900 Physical Exam Other Physical Findings: She appears well in no acute distress Lungs crackles at the right base Heart regular rhythm with no murmur Abdomen is soft, nontender with positive bowel sounds Back no CVA tenderness Extremities no cyanosis, clubbing or edema Results Last 24 Hours of Lab Results: Laboratory Tests 12/20 12/19 0700 0957 Chemistry Sodium (137 - 145 mmol/L) 143 144 Potassium (3.5 - 5.1 mmol/L) 4.4 4.0 Chloride (98 - 107 mmol/L) 109 H 111 H Carbon Dioxide (22 - 30 mmol/L) 25 21 L Anion Gap (5 - 16) 10 12 BUN (7 - 17 mg/dL) 44 H 46 H Creatinine (0.5 - 1.0 mg/dL) 1.7 H 1.8 H Estimated GFR (>60 ml/min) 30 L 28 L BUN/Creatinine Ratio (7 - 25 %) 25.9 H 25.6 H Hematology CBC w Diff NO MAN DIFF REQ WBC (4.8 - 10.8 /CUMM) 11.1 H RBC (4.20 - 5.40 /CUMM) 3.90 L Hgb (12.0 - 16.0 G/DL) 11.7 L Hct (37 - 47 %) 35.3 L MCV (81.0 - 99.0 FL) 90.4 MCH (27.0 - 31.0 PG) 29.9 MCHC (33.0 - 37.0 G/DL) 33.1 RDW (11.5 - 14.5 %) 14.2 Plt Count (130 - 400 /CUMM) 140 MPV (7.4 - 10.4 FL) 9.6 Gran % (42.2 - 75.2 %) 81.0 H Lymphocytes % (20.5 - 51.1 %) 13.5 L Monocytes % (1.7 - 9.3 %) 5.3 Eosinophils % (0 - 5 %) 0 Basophils % (0.0 - 2.0 %) 0.2 Absolute Granulocytes (1.4 - 6.5 /CUMM) 9.0 H Absolute Lymphocytes (1.2 - 3.4 /CUMM) 1.5 Absolute Monocytes (0.10 - 0.60 /CUMM) 0.6 Absolute Eosinophils (0.0 - 0.7 /CUMM) 0 Absolute Basophils (0.0 - 0.2 /CUMM) 0 Last 24 Hours of Jerome Results: Blood cultures 2 December 17 positive for Escherichia coli resistant to Ampicillin and Bactrim Urine culture December 17 greater than 100,000 colonies of Escherichia coli resistant to Ampicillin and Bactrim Assessment/Plan ID Impression: Improved, with temperatures normal and white blood cell count now nearly normal, on Ceftriaxone Day 3 of treatment for Escherichia coli sepsis of urologic origin. Urology evaluation appreciated with no plans for any intervention. Suggestion: 1. Would taper/discontinue steroids 2. Discontinue Ceftriaxone after this morning's dose and begin Keflex 500 mg po every 8 hours to complete a 14 day course of treatment
[2017-12-20 14:50] VITALS: BP 138/68
[2017-12-20 21:44] VITALS: BP 130/86
[2017-12-21 06:20] VITALS: BP 168/98
--- NOTE | 2017-12-21 07:25 | PN- Housestaff ---
Katya BOTELLO,Babak 12/21/17 0725: Subjective Follow-up For: Complicated cystitis Subjective: Patient was seen and examined at bedside. She was resting comfortably. She had no acute events overnight. She denies any dysuria, fever, chills, chest pain, shortness of breath. She is able to walk to the restroom with her walker and without oxygen without feeling short of breath. She is looking forward to being discharged home. Review of Systems Constitutional: Denies: chills, fever. EENTM: Reports: no symptoms. Cardiovascular: Reports: no symptoms. Respiratory: Reports: see HPI. Denies: short of breath. Gastrointestinal: Reports: no symptoms. Genitourinary: Denies: dysuria, frequency. Musculoskeletal: Reports: no symptoms. Objective Last 24 Hrs of Vital Signs/I&O Vital Signs Date Time Temp Pulse Resp B/P B/P Pulse O2 O2 Flow FiO2 Mean Ox Delivery Rate 12/21 0620 97.9 67 20 168/98 95 12/21 0601 67 168/98 12/21 0600 67 168/98 12/21 0559 67 168/98 12/21 0000 94 Nasal 2.0L Cannula 12/20 2144 97.6 83 19 130/86 95 Nasal 2.0L Cannula 12/20 2126 76 138/68 12/20 2126 76 138/68 12/20 1910 94 Nasal 2.0L Cannula 12/20 1600 Nasal 2.0L Cannula 12/20 1450 98.8 76 20 138/68 95 Nasal 4.0L Cannula 12/20 1212 96 Nasal 3.0L Cannula 12/20 1019 74 130/84 12/20 1019 74 130/84 12/20 1014 74 130/84 Intake & Output 12/21 0800 12/21 0000 12/20 1600 Intake Total 250 450 840 Output Total 350 600 425 Balance -100 -150 415 Intake, Oral 250 450 840 Number 4 1 Bowel Movements Output, Urine 350 600 425 Physical Exam General Appearance: Alert, Oriented X3, Cooperative, No Acute Distress Skin Temp/Moisture Exam: Warm/Dry Sepsis Skin Exam (color): Normal for Ethnicity Cardiovascular: Regular Rate, Normal S1, Normal S2 Lungs: scant rhonchi Abdomen: Normal Bowel Sounds, Soft, No Tenderness Extremities: No Clubbing, No Cyanosis, No Edema Current Medications: Current Medications Sig/Manoj Start time Last Medication Dose Route Stop Time Status Admin Acetaminophen 1,000 MG Q6P PRN 12/17 2215 AC IV Acetaminophen 650 MG Q6P PRN 12/17 1745 AC 12/17 PO 2104 Albuterol Sulfate 3 ML Q4P PRN 12/18 0915 AC INH Alprazolam 0.25 MG TIDPRN PRN 12/18 1715 AC 12/20 PO 12/25 1714 1229 Amlodipine Besylate 10 MG DAILY 12/18 1000 AC 12/21 PO 0600 Atorvastatin Calcium 80 MG 1700 12/18 1700 AC 12/20 PO 1702 Ceftriaxone Sodium 1,000 MG DAILY 12/18 1000 DC 12/20 IV 12/20 1200 1013 Cephalexin 500 MG Q8 12/21 0600 AC 12/21 PO 0540 Cephalexin 500 MG Q8 12/20 1400 DC PO Duloxetine HCl 30 MG DAILY 12/18 1000 AC 12/20 PO 1018 Heparin Sodium 5,000 UNIT Q8 12/18 0600 AC 12/21 (Porcine) SC 0540 Hydralazine HCl 25 MG BID 12/17 220 AC 12/21 PO 0559 Labetalol HCl 100 MG BID 12/17 2200 AC 12/21 PO 0601 Oxycodone HCl 30 MG Q8 12/19 1400 AC 12/21 PO 0539 Oxycodone HCl 10 MG Q8P PRN 12/18 0330 AC 12/20 PO 1705 Prednisone 20 MG DAILY 12/21 1000 AC PO 12/22 1001 Prednisone 40 MG DAILY 12/19 1000 AC 12/20 PO 12/21 0900 1019 Pregabalin 100 MG TID 12/17 2199 AC 12/20 PO 2126 Trazodone HCl 75 MG QPM 12/19 220 AC 12/20 PO 212 Last 24 Hrs of Lab/Jerome Results Last 24 Hrs of Labs/Mics: Laboratory Tests 12/21/17 0727: Anion Gap 12, Estimated GFR 35 L, BUN/Creatinine Ratio 24.7, CBC w Diff NO MAN DIFF REQ, RBC 4.28, MCV 89.5, MCH 29.0, MCHC 32.4 L, RDW 13.8, MPV 9.7, Gran % 68.4, Lymphocytes % 23.9, Monocytes % 7.1, Eosinophils % 0.4, Basophils % 0.2, Absolute Granulocytes 7.1 H, Absolute Lymphocytes 2.5, Absolute Monocytes 0.7 H, Absolute Eosinophils 0, Absolute Basophils 0 Assessment/Plan Assessment: Patient is a 62-year-old female with a PMH significant for COPD, HTN, chronic back pain status post multiple surgeries, neuropathy, who presented to the [facility] ED with altered mental status. The patient had an episode of urinary incontinence that was malodorous. She is lethargic and confused, below her cognitive baseline. #AMS resolved Patient is back to baseline #complicated cystitis with E coli bacteremia -Started on cephalexin today, will continue to complete a 14 day course (day 5 of antibiotics) completing on 01/09/18 #Acute hypoxic respiratory failure with history of COPD Rapid taper of prednisone -Patient saturating well on room air, ambulatory O2 sats 91-94% -Patient will be referred to Dr. La as an outpatient for PFTs and formal evaluation of COPD -Continue TRC/nebs #Chronic medical problems including chronic back pain, HTN, COPD -Continue home medications #Nephrolithiasis Nonobstructing renal calculus seen on inferior pole of the left kidney -Patient will be referred to Dr. Barrett as an outpatient for further workup Diet: Heart healthy DVT prophylaxis: SC heparin, ALPS CODE STATUS: Full code Problem List: 1. Nephrolithiasis 2. COPD (chronic obstructive pulmonary disease) 3. UTI (urinary tract infection) Pain Ratin Pain Location: none Pain Goal: Remain pain free Pain Plan: pain pathway Tomorrow's Labs & Rationales: Rosalind Ramirez MD 12/21/17 1258: Attending MD Review Statement Attending Statement Attending MD Statement: examined this patient, discuss w/resident/PA/FINANCIAL OPERATIONS CONSULTANT, agreed w/resident/PA/FINANCIAL OPERATIONS CONSULTANT, reviewed EMR data (avail) Attending Assessment/Plan: Significantly improved, doing well, no complaints. Will check ambulatory saturation and likely discharge today on Cephalex to complete 14 day course.
[2017-12-21] MEDS ORDERED: CEPHALEXIN500 M3 PO ×2 (08:33→11:51)
--- NOTE | 2017-12-21 08:44 | Patient Discharge Instructions ---
Discharge Instructions General Discharge Information You were seen/treated for: Sepsis secondary to urinar tract infection Special Instructions: Follow-up with your primary care physician within 1 week discharge. Follow-up with Yo La MD for establishing pulmonary care, we have provided you with a referral. Follow-up with Dr. Barrett, within 2 weeks from discharge for treatment of the kidney stone was found during this admission. We have provided you with a referral. Take all medications as directed, complete the full course of antibiotics given, last dose should be taken on 12/30/17. Call your doctor or return to the ER if he should experience fever, altered mental status, chest pain, shortness of breath. Acute Coronary Syndrome Inclusion Criteria At DC or during hospital stay patient has or had the following: ACS DIAGNOSIS No Discharge Core Measures Meds if any: Prescribed or Continued at Discharge Meds if any: NOT Prescribed or Continued at Discharge Congestive Heart Failure Inclusion Criteria At DC or during hospital stay patient has or had the following: CHF DIAGNOSIS No Discharge Core Measures Meds if any: Prescribed or Continued at Discharge Meds if any: NOT Prescribed or Continued at Discharge Cerebrovascular accident Inclusion Criteria At DC or during hospital stay patient has or had the following: CVA/TIA Diagnosis No Discharge Core Measures Meds if any: Prescribed or Continued at Discharge Meds if any: NOT Prescribed or Continued at Discharge Venous thromboembolism Inclusion Criteria VTE Diagnosis No VTE Type NONE VTE Confirmed by (Test) NONE Discharge Core Measures - Per Current guidelines, there needs to be overlap - treatment for the first 5 days of Warfarin therapy. - If discharged on Warfarin prior to 5 days of - overlap therapy, the patient will need to be - assessed for post discharge needs including - *Post discharge parental anticoagulation - *Warfarin and/or parental anticoagulation education - *Follow up date to check INR post discharge At least 5 days overlap therapy as Inpatient No Meds if any: Prescribed or Continued at Discharge Note: Overlap Therapy is Warfarin and Anticoagulant Meds if any: NOT Prescribed or Continued at Discharge
[2017-12-21 09:04] LABS: ABSOLUTE BASOPHIL COUNT 0 /CUMM (0.0-0.2); ABSOLUTE EOSINOPHIL COUNT 0 /CUMM (0.0-0.7); ABSOLUTE GRANULOCYTE CT 7.1 /CUMM (1.4-6.5); ABSOLUTE LYMPH COUNT 2.5 /CUMM (1.2-3.4); ABSOLUTE MONOCYTE COUNT 0.7 /CUMM (0.10-0.60); BASOPHIL % 0.2 % (0.0-2.0); EOSINOPHIL % 0.4 % (0-5); GRANULOCYTE % 68.4 % (42.2-75.2); HEMATOCRIT 38.3 % (37-47); MEAN CORPUSCULAR HGB CONC 32.4 G/DL (33.0-37.0); MEAN CORPUSCULAR VOLUME 89.5 FL (81.0-99.0); MEAN PLATELET VOLUME 9.7 FL (7.4-10.4); PLATELET COUNT 167 /CUMM (130-400); RBC DISTRIBUTION WIDTH 13.8 % (11.5-14.5); RED BLOOD CELL CT 4.28 /CUMM (4.20-5.40); WHITE BLOOD CELL COUNT 10.4 /CUMM (4.8-10.8)
[2017-12-21 09:23] VITALS: BP 126/68
--- NOTE | 2017-12-21 13:21 | Discharge Summary ---
Hospital Course Allergies: Coded Allergies: codeine (ITCHING, HIVES 12/16/15) Discharge Instructions Medications at Discharge Discharge Medications: Continue taking these medications: Oxycodone HCl (Oxycodone HCl) 10 MG TABLET 1 Tablet ORAL THREE TIMES A DAY NEEDED as needed for PAIN Comments: Last Taken: 12/21/17 Time: 8:00 AM Albuterol Sulfate (Proair Hfa) 90 MCG HFA.AER.AD 2 Puff Inhale through mouth EVERY 4-6 HOURS NEEDED as needed for SHORTNESS OF BREATH Comments: NOT GIVEN IN HOSPITAL Amlodipine Besylate (Norvasc) 10 MG TABLET 1 Tablet ORAL DAILY Comments: Last Taken: 12/21/17 Time: 6:00 AM Oxycodone HCl (Oxycontin) 30 MG TAB.ER.12H 1 Tablet ORAL THREE TIMES DAILY Comments: Last Taken: 12/21/17 Time: 1:00 PM Labetalol HCl (Labetalol HCl) 100 MG TABLET 1 Tablet ORAL TWICE DAILY Comments: Last Taken: 12/21/17 Time: 9:30 AM Albuterol Sulfate (Albuterol Sulfate) 0.63 MG/3 ML VIAL.NEB 1 Vial Inhale Solution 4 TIMES A DAY as needed for SHORTNESS OF BREATH Comments: NOT GIVEN IN HOSPITAL Alprazolam (Alprazolam) 0.25 MG TABLET 1 Tablet ORAL THREE TIMES A DAY NEEDED as needed for ANXIETY Comments: Last Taken: 12/21/17 Time: 8:00 AM Duloxetine HCl (Duloxetine HCl) 30 MG CAPSULE.DR 1 Capsule ORAL DAILY Comments: Last Taken: 12/21/17 Time: 9:30 AM Hydralazine HCl (Hydralazine HCl) 25 MG TABLET 1 Tablet ORAL TWICE DAILY Comments: Last Taken: 12/21/17 Time: 6:00 AM Pregabalin (Lyrica) 100 MG CAPSULE 1 Capsule ORAL THREE TIMES DAILY Comments: Last Taken: 12/21/17 Time: 9:30 AM Trazodone HCl (Trazodone HCl) 50 MG TABLET 1.5 Tablet ORAL Every night Comments: Last Taken: 12/20/17 Time: 9:30 PM Umeclidinium Brm/Vilanterol Tr (Anoro Ellipta 62.5-25 Mcg INH) 62.5 MCG-25 MCG/ ACTUATION BLST.W.DEV 1 PUFF Inhale through mouth DAILY Comments: NOT GIVEN IN HOSPITAL Atorvastatin Calcium (Atorvastatin Calcium) 80 MG TABLET 1 Tablet ORAL 5 PM Comments: Last Taken: 12/20/17 Time: 5:00 PM Start taking the following new medications: Cephalexin (Cephalexin) 500 MG CAPSULE 1 Capsule ORAL THREE TIMES DAILY Qty = 29 No Refills Instructions: Take full course. Last dose on 12/30/17. Comments: Last Taken: 12/21/17 Time: 1:00 PM
== END 2017-12-21 14:36 | DRG 871 ==
LOC: ERH 13:53 → CRI 17:38 → ERHI 17:38 → ENRESERV 18:45 → ENTRNSPT 19:33 → EDTRNSPT 19:54 → CRI 19:57 → 2NA 19:58 → EDTRNSPTSTS 20:10 → EDTRNSPT 20:10 → CMPTRNSPT 20:35 → CRI 22:04 → ENTRNSPT 12-18 14:05 → CMPTRNSPT 12-18 14:15 → 2NB 12-18 14:37 → ENPENDDIS 12-21 11:59 → ENTRNSPT 12-21 14:20 → EDTRNSPT 12-21 14:32 → EDTRNSPTSTS 12-21 14:32 → 2NB 12-21 14:36 → CMPTRNSPT 12-21 14:44
PROVIDERS: Internal Medicine; Internal Medicine Interventional Cardiology; Physician Assistant; Student in an Organized Health Care Education/Training Program
DX: A41.51 Sepsis due to Escherichia coli [E. coli] (principal); J96.01 Acute respiratory failure with hypoxia; I50.32 Chronic diastolic (congestive) heart failure; I13.0 Hypertensive heart and chronic kidney disease with heart failure and stage 1 through stage 4 chronic kidney disease, or unspecified chronic kidney disease; N39.0 Urinary tract infection, site not specified; J44.1 Chronic obstructive pulmonary disease with (acute) exacerbation; N10 Acute pyelonephritis; G62.9 Polyneuropathy, unspecified; N18.3 Chronic kidney disease, stage 3 (moderate); M54.9 Dorsalgia, unspecified; Z88.5 Allergy status to narcotic agent; Z79.891 Long term (current) use of opiate analgesic; Z79.51 Long term (current) use of inhaled steroids; F41.9 Anxiety disorder, unspecified; I16.0 Hypertensive urgency; T40.2X1A Poisoning by other opioids, accidental (unintentional), initial encounter; F17.210 Nicotine dependence, cigarettes, uncomplicated; N20.0 Calculus of kidney; N26.1 Atrophy of kidney (terminal)
CPT/HCPCS: 2NBSP; CCU; 36592; 71045; 74176; 76775; 80307; 81001; 82436; 87040; 87070; 87086; 93005; 93010; 94799; 96372; 96374; G0480; J0131; J0696; J1644; J2920; J2930